=== PATIENT | female | born 1960 | race Caucasian/White ===

== ENCOUNTER 2020-07-26 16:14 | Emergency (ER) | payer OTHER, SELFPAY ==
[2020-07-26 16:36] VITALS: PULSE 78; RESP 20; TEMP 36.5; O2SAT 96; BMI 28.3
--- NOTE | 2020-07-26 17:01 | ED.EYEPROB ---
HPI - Eye Problem General Chief complaint: Eye Problems Stated complaint: foreign object in eye Time Seen by Provider: 07/26/20 16:43 Source: patient Mode of arrival: ambulatory Limitations: no limitations History of Present Illness HPI Narrative: 59 y/o female presents with right eye pain after she got her contact lens stuck in her eye this afternoon. She states when she put them in at 4pm today she had instant pain and was unable to get it out. She tried multiple times but was unable to. She has pain with blinking. She has increased watering of the eye. No noted changes in vision. MD chief complaint: eye pain Related Data Home Medications Medication Instructions Recorded Confirmed budesonide-formoterol 2 puff PO BID 07/26/20 07/26/20 bupropion HCl 1 tab PO QAM 07/26/20 07/26/20 candesartan 1 tab PO DAILY 07/26/20 07/26/20 duloxetine 1 cap PO QAM 07/26/20 07/26/20 estradiol 2 g VAGINAL 3XW 07/26/20 07/26/20 eszopiclone 1 tab PO BEDTIME 07/26/20 07/26/20 ibuprofen 1 tab PO Q8H PRN 07/26/20 07/26/20 levalbuterol tartrate 1 puff PO Q4H PRN 07/26/20 07/26/20 Allergies Allergy/AdvReac Type Severity Reaction Status Date / Time losartan Allergy Unknown Unknown Verified 07/26/20 17:08 metformin [METFORMIN] Allergy Unknown UNKNOWN, Verified 07/26/20 17:08 stomach pain pravastatin Allergy Unknown joint pain Verified 07/26/20 17:08 Review of Systems Review of Systems: Constitutional: No Fever, No Chills ENT/Mouth: No sore throat, No Rhinorrhea, No Swallowing Difficulty Eyes: + Eye Pain, No Swelling, + Redness Neuro: + Headache Heme/Lymph: No Bruising PMFSH Past Medical History Medical History Arthralgia Asthma Diabetes mellitus, type 2 Hypercholesteremia Hypertension Social History Social History Advance Directives: No Advance Directives Information Provided: No Physical Exam Vital Signs: Vital Signs: Last Vital Signs Temp 97.7 F 07/26/20 16:36 Pulse 78 07/26/20 16:36 Resp 20 07/26/20 16:36 Pulse Ox 96 07/26/20 16:36 Body Mass Index 28.3 Appearance: Alert. Oriented X3. Sitting on stretcher with hand over right eye. HEENT: right eye injected conjunctiva, fluorescene exam did not reveal any uptake, PERRLA, EOMI, lid is normal. normal left eye examination. CVS: Normal heart rate and rhythm. Pulses normal. Respiratory: No respiratory distress. Skin: Skin warm and dry. Normal skin color. Normal skin turgor. No rashes. Extremities: no lower extremity edema. Neuro: Oriented X 3. Non-focal. Course Course Course Narrative: 59 yo female presenting with contact lense stuck in her eye. Able to be removed successfully, intact. No corneal abrasion on fluroscene examination. Stable for discharge. Patient counseled. Procedures FB Removal Eye Time Out performed: No Location: eye (R) Topical anesthetic used: tetracaine Foreign body: other (contact lens) Evidence of corneal penetration: No Technique: irrigation and other Procedure performed under: direct visualization with magnification Post-procedure medication: topical anesthetic Patient tolerated procedure: well MDM - Eye Problem Differential Diagnosis Differential diagnosis: Likely corneal abrasion, conjunctivitis and corneal ulcer Critical Care Time Critical Care Time Critical Care Time: No Discharge Plan Discharge Clinical Impression: Foreign body in eye Qualifiers: Encounter type: initial encounter Laterality: right Qualified Code(s): T15.91XA - Foreign body on external eye, part unspecified, right eye, initial encounter Patient Disposition: Home, Self-Care Instructions: Eye Pain (ED) Additional Instructions: Your contact lens was successfully removed in the Emergency Department today. Exam did now show any evidence of corneal abrasion or scratches on your eye's surface. Do not use contact lenses for the next 72 hours. Wear your glasses instead. Use artificial tears as needed for dry eyes. If you develop recurrence of pain, redness, or develop blurred vision, discharge or signs of infection call your doctor or come back to the ER for further evalution. Prescriptions: No Action bupropion HCl 150 mg tablet sustained-release 12 hr 1 tab PO QAM RF: 0 ibuprofen 800 mg tablet 1 tab PO Q8H PRN (Reason: pain) RF: 0 candesartan 16 mg tablet 1 tab PO DAILY RF: 0 estradiol 0.01 % (0.1 mg/gram) cream 2 g vaginal 3XW RF: 0 duloxetine 60 mg capsule,delayed release(DR/EC) 1 cap PO QAM RF: 0 eszopiclone 1 mg tablet 1 tab PO BEDTIME RF: 0 levalbuterol tartrate 45 mcg/actuation HFA aerosol inhaler 1 puff PO Q4H PRN (Reason: Shortness Of Breath) RF: 0 budesonide-formoterol 80-4.5 mcg/actuation HFA aerosol inhaler 2 puff PO BID RF: 0
[2020-07-26] MEDS: Fluorescein Sodium STRIP 1 STRIP EYE-RIGHT (17:26)
== END 2020-07-26 17:32 | disposition home or self-care (01) ==
PROVIDERS: Emergency Provider Emergency Medicine; PCP Internal Medicine
DX: T15.01XA Foreign body in cornea, right eye, initial encounter (principal); H57.11 Ocular pain, right eye; I10 Essential (primary) hypertension; E11.9 Type 2 diabetes mellitus without complications; Y28.9XXA Contact with unspecified sharp object, undetermined intent, initial encounter; Y93.9 Activity, unspecified; Y92.9 Unspecified place or not applicable; Y99.9 Unspecified external cause status; Z79.899 Other long term (current) drug therapy
CPT/HCPCS: 65220; 99283

== ENCOUNTER → 2020-10-14 17:35 | Emergency (ER) | payer OTHER, SELFPAY | END | disposition left against medical advice (07) | PROVIDERS: Emergency Provider Emergency Medicine; PCP Internal Medicine | DX: R10.9 Unspecified abdominal pain (principal) ==

== ENCOUNTER 2021-02-24 09:04 | Outpatient (REF) | payer OTHER, SELFPAY ==
[2021-02-24 12:25] LABS: Alanine Aminotransferase 19 U/L (0-31); Albumin Level 4.2 g/dL (3.5-5.0); Alkaline Phosphatase 74 U/L (39-117); Anion Gap 12 (12-20); Aspartate Amino Transferase 16 U/L (5-31); Bilirubin Total 0.2 mg/dL (0.0-1.0); Blood Urea Nitrogen 17 mg/dL (9-16); Calcium 9.4 mg/dL (8.4-10.2); Carbon Dioxide 26 mmol/L (22-29); Chloride 105 mmol/L (96-108); Cholesterol 207 mg/dL; Estimated Glomerular Filt Rate > 60; Glucose Fasting 136 mg/dL (60-99); HDL Cholesterol 48 mg/dL; LDL Cholesterol Calculated 115 mg/dl; Potassium 4.2 mmol/L (3.3-5.1); Sodium 139 mmol/L (135-145); Total Protein 7.2 g/dL (6.5-8.0); Triglycerides 224 mg/dL
[2021-02-24 13:04] LABS: Estimated Average Glucose 140 mg/dL; Hemoglobin A1c % 6.5 %
[2021-02-24 13:14] LABS: Creatinine Urine 243.06 mg/dL; Microalbum/Creatinine Ratio Ur 7.4 ug/mg cr
== END 2021-02-24 09:05 | disposition home or self-care (01) ==
LOC: HO.HMGCLDS 09:04
PROVIDERS: PCP Internal Medicine; Visit Provider Internal Medicine
DX: E11.9 Type 2 diabetes mellitus without complications (principal); E78.00 Pure hypercholesterolemia, unspecified; I10 Essential (primary) hypertension
CPT/HCPCS: 36415; 80053; 80061; 82043; 83036

== ENCOUNTER 2021-07-20 10:55 | Outpatient (REF) | payer OTHER, SELFPAY ==
[2021-07-20 14:17] LABS: Estimated Average Glucose 180 mg/dL; Hemoglobin A1c % 7.9 %
[2021-07-21 04:20] LABS: HBS Num1 0.49 mIU/mL (0-7.99); ~Hepatitis B Surface Antibody NONREACTIVE (Nonreactive)
[2021-07-22 09:27] LABS: Rubeola IgG (Measles) >300.00 AU/mL
[2021-07-22 22:06] LABS: TS Negative Control Passed; TS Panel A 0; TS Panel B 0; TS Positive Control Passed; TSpotTB Negative (Negative)
== END 2021-07-20 10:56 | disposition home or self-care (01) ==
LOC: HO.HMGCLDS 10:55
PROVIDERS: Visit Provider Internal Medicine
DX: Z02.1 Encounter for pre-employment examination (principal); E11.9 Type 2 diabetes mellitus without complications
CPT/HCPCS: 36415; 83036; 86481; 86706; 86735; 86762; 86765; 86787

== ENCOUNTER 2021-07-21 11:29 | Outpatient (REF) | payer OTHER, SELFPAY ==
[2021-07-21 14:45] LABS: Alanine Aminotransferase 27 U/L (0-31); Albumin Level 4.2 g/dL (3.5-5.0); Alkaline Phosphatase 70 U/L (39-117); Anion Gap 12 (12-20); Aspartate Amino Transferase 20 U/L (5-31); Bilirubin Total 0.3 mg/dL (0.0-1.0); Blood Urea Nitrogen 15 mg/dL (9-16); Calcium 9.2 mg/dL (8.4-10.2); Carbon Dioxide 28 mmol/L (22-29); Chloride 101 mmol/L (96-108); Estimated Glomerular Filt Rate > 60; Glucose Fasting 169 mg/dL (60-99); Sodium 137 mmol/L (135-145); Total Protein 7.4 g/dL (6.5-8.0)
== END 2021-07-21 11:30 | disposition home or self-care (01) ==
LOC: HO.HMGCLDS 11:29
PROVIDERS: Visit Provider Internal Medicine
DX: E11.9 Type 2 diabetes mellitus without complications (principal)
CPT/HCPCS: 36415; 80053

== ENCOUNTER → 2021-09-01 14:24 | Outpatient (BNVA) | payer OTHER, SELFPAY | PROVIDERS: PCP Internal Medicine; Visit Provider Advanced Practice Midwife ==

== ENCOUNTER 2021-09-23 13:39 | Outpatient (REF) | payer OTHER, SELFPAY ==
[2021-09-23 15:58] LABS: Hematocrit 40.1 % (37.0-47.0); Hemoglobin 13.1 g/dl (12.0-16.0); Mean Corpuscular HGB Conc 32.7 g/dl (31.0-35.0); Mean Corpuscular Hemoglobin 30.3 pg (27.0-33.0); Mean Corpuscular Volume 92.8 fL (80.0-98.0); Mean Platelet Volume 10.5 fL (9.4-12.3); Platelet Count 288 X10*3/uL (160-400); Red Blood Count 4.32 X10*6/uL (4.20-5.50); Red Cell Distribution Width 12.4 % (11.0-16.0); White Blood Count 5.6 X10*3/uL (4.8-10.8)
[2021-09-23 16:10] LABS: Estimated Average Glucose 194 mg/dL; Hemoglobin A1c % 8.4 %
[2021-09-23 16:14] LABS: Alanine Aminotransferase 28 U/L (0-31); Albumin Level 4.1 g/dL (3.5-5.0); Alkaline Phosphatase 74 U/L (39-117); Anion Gap 10 (12-20); Aspartate Amino Transferase 19 U/L (5-31); Bilirubin Total 0.4 mg/dL (0.0-1.0); Blood Urea Nitrogen 20 mg/dL (9-16); Calcium 9.6 mg/dL (8.4-10.2); Carbon Dioxide 28 mmol/L (22-29); Chloride 102 mmol/L (96-108); Cholesterol 225 mg/dL; Estimated Glomerular Filt Rate > 60; Glucose Fasting 184 mg/dL (60-99); HDL Cholesterol 42 mg/dL; Iron 127 mcg/dL (30-160); LDL Cholesterol Calculated 131 mg/dl; Percent Iron Saturation 38 % (15-50); Potassium 4.5 mmol/L (3.3-5.1); Sodium 135 mmol/L (135-145); Total Iron Binding Capacity 330 mcg/dL (228-428); Total Protein 7.4 g/dL (6.5-8.0); Triglycerides 262 mg/dL; Unsaturated Iron Binding 203 ug/dL
[2021-09-23 16:23] LABS: Creatinine Urine 238.51 mg/dL; Microalbum/Creatinine Ratio Ur 10.4 ug/mg cr
[2021-09-23 16:37] LABS: TSH reflex Free T4 0.93 uIU/mL (0.32-4.0)
[2021-09-30 16:36] LABS: Cortisol, Free 0.47 mcg/dL
== END 2021-09-23 13:40 | disposition home or self-care (01) ==
LOC: HO.HMGCLDS 13:39
PROVIDERS: Visit Provider Internal Medicine
DX: E11.9 Type 2 diabetes mellitus without complications (principal); I10 Essential (primary) hypertension; E78.00 Pure hypercholesterolemia, unspecified; R53.83 Other fatigue
CPT/HCPCS: 36415; 80053; 80061; 82043; 82530; 83036; 83540; 84443; 85027

== ENCOUNTER → 2021-11-08 22:07 | Outpatient (REF) | payer OTHER, SELFPAY | LOC: HO.SL 22:07 | PROVIDERS: Visit Provider Internal Medicine | DX: G47.30 Sleep apnea, unspecified (principal) | CPT/HCPCS: 95806 ==

== ENCOUNTER 2021-12-29 14:15 | Emergency (ER) | payer OTHER, SELFPAY ==
--- NOTE | ~2021-12-29 | XR_ITS ---
EXAMINATION: XR CHEST CLINICAL INFORMATION: Cough COMPARISON: April 23, 2020 TECHNIQUE: PA view of the chest was obtained. FINDINGS: No significant abnormality is noted involving the heart, lungs, mediastinum, bony thorax or soft tissues. XR/XR chest 1V IMPRESSION: No acute disease.
[2021-12-29 14:27] VITALS: BP 161/95; PULSE 106; RESP 16; TEMP 37.1; O2SAT 96; BMI 31.1
[2021-12-29 14:57] LABS: Influenza A Negative (Negative); Influenza B2 Negative (Negative)
[2021-12-29 15:18] LABS: COVID-19 Test Positive (Negative)
[2021-12-29] MEDS: Albuterol/Iprat 2.5/0.5MG 3 ML AMPUL.NEB INHALE (15:29)
[2021-12-29 15:30] VITALS: PULSE 106; RESP 20; O2SAT 95
--- NOTE | 2021-12-29 15:59 | ED.URI ---
HPI - URI/Sore Throat General Chief Complaint: Upper Respiratory Symptoms Stated Complaint: sinus infection Time Seen by Provider: 12/29/21 14:49 Source: patient Mode of arrival: ambulatory History of Present Illness HPI Narrative: 61-year-old female with a past medical history of asthma, depression, diabetes, sleep apnea, hyperlipidemia, presenting to the ED complaining of sinus pressure/pain, productive cough, wheezing, chest discomfort when coughing, myalgias and right ear pain since yesterday. Reports subjective fever and chills. Denies SOB, pedal edema, recent travel, sick contacts. States does not have inhaler at home MD elicited complaint: cough, rhinorrhea and nasal congestion Onset (ago): day(s) Related Data Home Medications Medication Instructions Recorded Confirmed duloxetine 60 mg capsule,delayed 1 cap PO QAM 07/26/20 09/23/21 release ibuprofen 800 mg tablet 1 tab PO Q8H PRN 07/26/20 09/23/21 levalbuterol tartrate 45 1 puff PO Q4H PRN 07/26/20 09/23/21 mcg/actuation aerosol inhaler prazosin 1 mg capsule 1 mg PO BEDTIME 08/17/20 09/23/21 bupropion HCl 300 mg 24 hr tablet, 300 mg PO DAILY 02/01/21 09/23/21 extended release Previous Rx's Medication Instructions Recorded nystatin 100,000 unit/mL oral 5 ml PO Q6H #200 ml 04/07/21 suspension flash glucose scanning reader #1 ea 07/28/21 (FreeStyle Cici 2 [place]) flash glucose sensor (FreeStyle #2 ea 07/28/21 Cici 14 Day Sensor) budesonide-formoterol HFA 160 2 puff INHALATION BID #10.2 g 08/12/21 mcg-4.5 mcg/actuation aerosol inhaler (Symbicort) empagliflozin 10 mg tablet 10 mg PO DAILY #30 tab 10/06/21 (Jardiance) rosuvastatin 5 mg tablet (Crestor) 5 mg PO DAILY #90 tab 11/22/21 blood sugar diagnostic (FreeStyle #200 ea 11/24/21 Lite Strips) blood-glucose meter (FreeStyle #1 ea 11/24/21 Glentana Lite) lancets 28 gauge (FreeStyle #200 ea 11/24/21 Lancets) eszopiclone 1 mg tablet 1 mg PO BEDTIME #30 tab 12/03/21 albuterol sulfate 90 mcg/actuation 2 puff INHALATION Q4-6H PRN #6.7 g 12/29/21 aerosol inhaler azithromycin 250 mg tablet See Rx Instructions .ROUTE 12/29/21 .COMPLEX #6 tab benzonatate 200 mg capsule 200 mg PO TID PRN #20 cap 12/29/21 fluticasone propionate 50 2 spray INTRANASAL DAILY #16 g 12/29/21 mcg/actuation nasal spray,suspension (Flonase Allergy Relief) Allergies Allergy/AdvReac Type Severity Reaction Status Date / Time linagliptin [From Tradjenta] Allergy Unknown pancreatiti Verified 09/23/21 12:45 s losartan Allergy Unknown Unknown Verified 09/23/21 12:45 metformin [METFORMIN] Allergy Unknown UNKNOWN, Verified 09/23/21 12:45 stomach pain pravastatin Allergy Unknown joint pain Verified 09/23/21 12:45 Review of Systems Review of Systems: Constitutional: +subj Fever, + Chills ENT/Mouth: No Ear Pain, + Nasal Congestion, No Sinus Pain, No Hoarseness, No sore throat, + Rhinorrhea, No Swallowing Difficulty Cardiovascular: + Chest discomfort when coughing, No SOB Respiratory: + Cough, + Sputum, + Wheezing Gastrointestinal: No Nausea, No Vomiting, No Diarrhea, No Constipation, No Abdominal pain Genitourinary: No Dysuria, No Urinary Frequency, No Urgency, No Flank Pain Musculoskeletal: No joint pain, + Myalgias, No Joint Swelling Skin: No Skin Lesions, No rash Neuro: No Weakness, No Numbness, No Paresthesias Yes all other systems are reviewed and are negative [facility] Past Medical History Attestation statement: The following information was validated with the patient. Medical History Arthralgia Asthma Depression Diabetes mellitus, type 2 Fatigue Hypercholesteremia Menopause Pre-employment examination Sleep apnea Surgical History History of carpal tunnel surgery History of surgery Hx of bilateral breast reduction surgery Hx of section Hx of cholecystectomy Family History Family History Father Diabetes mellitus Mother Diabetes mellitus Social History Social History Housing: House Alcohol intake: never Patient Tobacco Use Status: Never used Tobacco e-Cigarette/Vaping Use: Never Used Advance Directives: No Advance Directives Information Provided: No Current occupational status: employed Physical Exam Vital Signs: Vital Signs: Last Vital Signs Temp 99.8 F 12/29/21 16:47 Pulse 96 12/29/21 16:47 Resp 16 12/29/21 16:47 BP 156/84 H 12/29/21 16:47 Pulse Ox 97 12/29/21 16:47 BMI result Body Mass Index 31.1 Const: General: cooperative, healthy appearing and no acute distress Orientation/consciousness: patient oriented x3 Limitations: no limitations HEENT: Head: Yes normal to inspection and Yes atraumatic Ears: hearing grossly normal bilaterally, external ears normal, mastoids normal and TM abnormal bulging on the right and erythematous on the right General nose exam: Normal external nose present Face and sinus: Yes normal facial exam and Yes sinus tenderness (Maxillary and ethmoid) Mouth: Normal oral and palatal mucosa present Throat: Yes posterior oropharynx normal, Yes tonsils normal, Yes uvula midline, No peritonsillar mass, No uvula laterally displaced and No uvular edema Eyes: General: appearance normal, both eyes and all related structures EOM: EOMs intact bilaterally Neck: Neck: Yes normal visual inspection, Yes no meningeal signs, Yes trachea midline, Yes supple and No anterior neck swelling Resp: Effort & Inspection: normal respiratory effort and no respiratory distress Auscultation: clear to auscultation bilaterally, no rales, no rhonchi and no wheezes Cardio: Rate: regular rate Heart sounds: S1 normal heart sound present and S2 normal heart sound present Skin: Rashes: no rashes Wounds: no wounds Neuro: General: patient oriented x3, tone normal and no meningeal signs Gait exam (Neuro): Normal gait present Extrem: General: Yes normal to inspection, Yes no pedal edema and Yes no calf tenderness Course Course Course Narrative: -COVID-19 positive. Influenza negative XR chest 1V IMPRESSION: No acute disease. ? -tachycardia improved s/p Motrin >> results discussed with patient including worrisome signs and symptoms and strict return precautions as needed follow-up with [facility] referral made MDM - URI/Sore Throat MDM Narrative Medical decision making narrative: 61-year-old female with a past medical history of asthma, depression, diabetes, sleep apnea, hyperlipidemia, presenting to the ED complaining of sinus pressure/pain, productive cough, wheezing, chest discomfort when coughing, myalgias and right ear pain since yesterday. On exam mildly tachyardic, NAD, nontoxic appearing, lungs CTA, sinuses tender to palpation, right ear consistent with otitis. Concern for viral illness. Low concern for asthma exacerbation. Symptoms atypical for ACS or PE Plan: CXR, COVID-19 testing, influenza testing, DuoNeb per patient request Differential Diagnosis Differential diagnosis: Likely upper respiratory infection, sinusitis, viral infection, bronchitis, influenza and pharyngitis Medical Records Attestation: I reviewed the patient's medical records. Lab Data Attestation: I reviewed the patient's lab results. Labs: Lab Results 12/29/21 12/29/21 Range/Units 14:32 15:06 COVID-19 (VINAYAK) Positive A (Negative) COVID-19 Clin Com See Note Influenza Type A (MARISEL) Negative (Negative) Influenza Type B (MARISEL) Negative (Negative) Influenza A & B Note See Note Discharge Plan Discharge Clinical Impression: COVID-19, Sinusitis, Otitis media Patient Disposition: Home, Self-Care Instructions: COVID-19 (Coronavirus Disease 2019) (ED) Additional Instructions: You have COVID-19. It also appears you have an ear infection and symptoms of sinusitis. Zithromax as antibiotic we take as prescribed. Possible Perles for cough. Flonase is a nasal decongestion. Rest. Stay hydrated. Take Tylenol and Motrin as needed At this time you will be okay for discharge. Please self isolate for 10-14 days. Do not expose yourself to others. You may not go to work or school. Please continue to follow cold instructions and wash your hands frequently. You may take Tylenol / Motrin as directed on the bottle for pain or fever. If you have constant or persistent shortness of breath, fever unresolved with medications, chest pain, or your unable to eat or drink please return to the ED CDC Guidelines for home isolation: - Stay away from others - WEAR A MASK if you are sick AND STAY HOME - Cover your mouth and nose with a tissue when you cough or sneeze. Dispose of tissues in a lined trash can and wash your hands immediately with soap and water for at least 20 seconds. If soap and water are not available, clean hands with alcohol-based hand administrative intern that contains at least 60% alcohol. - Clean your hands often with soap and water for at least 20 seconds - Avoid touching your eyes, nose and mouth with unwashed hands - Do not share dishes, drinking glasses, cups, eating utensils, towels, or bedding with other people in your home. After using these items, wash them thoroughly with soap and water or put in the bracer. - Clean high-touch surfaces in your isolation area ( sick room and bathroom) every day; let a caregiver clean and disinfect high-touch surfaces in other areas of the home. Clean the area or item with soap and water or another detergent if it is dirty. Then, use a household disinfectant. - Limit contact with pets and animals: If you must care for a pet, wash your hands before and after interacting with them) Prescriptions: New azithromycin 250 mg tablet See Rx Instructions .ROUTE .COMPLEX Qty: 6 0RF Rx Instructions: take 500 mg today (day 1), then 250 mg for 4 days (days 2-5) benzonatate 200 mg capsule 200 mg PO TID PRN (Reason: cough) Qty: 20 0RF albuterol sulfate 90 mcg/actuation HFA aerosol inhaler 2 puff inhalation Q4-6H PRN (Reason: shortness of breath or wheezing) Qty: 6.7 0RF fluticasone propionate [Flonase Allergy Relief] 50 mcg/actuation spray,suspension 2 spray intranasal DAILY Qty: 16 0RF Rx Instructions: administer into each nostril No Action nystatin 100,000 unit/mL suspension 5 ml PO Q6H Qty: 200 0RF Rx Instructions: swish and swallow (DME) FreeStyle Cici 2 [place] Misc See Rx Instructions .Route Qty: 1 0RF Rx Instructions: As directed (DME) FreeStyle Cici 14 Day Sensor Kit See Rx Instructions .Route Qty: 2 3RF Rx Instructions: As directed budesonide-formoterol [Symbicort] 160-4.5 mcg/actuation HFA aerosol inhaler 2 puff inhalation BID Qty: 10.2 6RF Jardiance 10 mg tablet 10 mg PO DAILY Qty: 30 2RF rosuvastatin [Crestor] 5 mg tablet 5 mg PO DAILY Qty: 90 0RF Rx Instructions: need to schedule 1 month followup with PCP before more refills (DME) blood-glucose meter [FreeStyle Glentana Lite] Kit See Rx Instructions .Route Qty: 1 0RF Rx Instructions: test twice a day (DME) lancets [FreeStyle Lancets] 28 gauge misc See Rx Instructions .Route Qty: 200 3RF Rx Instructions: test blood sugar twice a day (DME) FreeStyle Lite Strips Strip See Rx Instructions .Route Qty: 200 3RF Rx Instructions: test blood sugar twice a day eszopiclone 1 mg tablet 1 mg PO BEDTIME Qty: 30 0RF ibuprofen 800 mg tablet 1 tab PO Q8H PRN (Reason: pain) 0RF duloxetine 60 mg capsule,delayed release(DR/EC) 1 cap PO QAM 0RF levalbuterol tartrate 45 mcg/actuation HFA aerosol inhaler 1 puff PO Q4H PRN (Reason: Shortness Of Breath) 0RF prazosin 1 mg capsule 1 mg PO BEDTIME 0RF bupropion HCl 300 mg tablet extended release 24 hr 300 mg PO DAILY 0RF Referrals: Tessie Culp MD [Primary Care Provider] - 10 days Interventions: ED Discharge Assessment Last Done: 12/29/21 16:54 Discharge Date/Time: 12/29/21 16:57
[2021-12-29] MEDS: Ibuprofen 400 MG TABLET PO (16:10)
[2021-12-29 16:47] VITALS: BP 156/84; PULSE 96; RESP 16; TEMP 37.7; O2SAT 97
== END 2021-12-29 16:57 | disposition home or self-care (01) ==
PROVIDERS: Physician Assistant; Emergency Provider Emergency Medicine; PCP Internal Medicine
DX: U07.1 COVID-19 (principal); H66.91 Otitis media, unspecified, right ear; E11.9 Type 2 diabetes mellitus without complications; J45.909 Unspecified asthma, uncomplicated
CPT/HCPCS: 71045; 87502; 87635; 94640; 99284

== ENCOUNTER 2022-08-25 09:21 | Outpatient (REF) | payer OTHER, SELFPAY ==
[2022-08-25 11:16] LABS: Hematocrit 43.6 % (37.0-47.0); Hemoglobin 14.2 g/dl (12.0-16.0); Mean Corpuscular HGB Conc 32.6 g/dl (31.0-35.0); Mean Corpuscular Hemoglobin 30.5 pg (27.0-33.0); Mean Corpuscular Volume 93.6 fL (80.0-98.0); Mean Platelet Volume 10.7 fL (9.4-12.3); Platelet Count 255 X10*3/uL (160-400); Red Blood Count 4.66 X10*6/uL (4.20-5.50); White Blood Count 6.7 X10*3/uL (4.8-10.8)
[2022-08-25 11:41] LABS: Alanine Aminotransferase 26 U/L (0-31); Albumin Level 4.3 g/dL (3.5-5.0); Alkaline Phosphatase 68 U/L (39-117); Anion Gap 11 (12-20); Aspartate Amino Transferase 19 U/L (5-31); Bilirubin Total 0.4 mg/dL (0.0-1.0); Blood Urea Nitrogen 11 mg/dL (9-16); Calcium 9.4 mg/dL (8.4-10.2); Carbon Dioxide 30 mmol/L (22-29); Chloride 104 mmol/L (96-108); Cholesterol 147 mg/dL; Estimated Glomerular Filt Rate > 60; Glucose Fasting 236 mg/dL (60-99); HDL Cholesterol 47 mg/dL; LDL Cholesterol Calculated 58 mg/dl; Sodium 141 mmol/L (135-145); Total Protein 7.3 g/dL (6.5-8.0); Triglycerides 211 mg/dL
[2022-08-25 11:52] LABS: Estimated Average Glucose 212 mg/dL
== END 2022-08-25 09:22 | disposition home or self-care (01) ==
LOC: HO.HMGCLDS 09:21
PROVIDERS: PCP Internal Medicine; Visit Provider Internal Medicine
DX: E11.9 Type 2 diabetes mellitus without complications (principal); E78.00 Pure hypercholesterolemia, unspecified
CPT/HCPCS: 36415; 80053; 80061; 83036; 85027

== ENCOUNTER 2022-08-26 15:25 | Emergency (ER) | payer OTHER, SELFPAY ==
--- NOTE | ~2022-08-26 | CT_ITS ---
EXAMINATION: CT ABDOMEN AND PELVIS WITHOUT CONTRAST CLINICAL INFORMATION: Left flank pain COMPARISON: CT abdomen and pelvis 04/23/2020 TECHNIQUE: Multidetector volumetric imaging was performed from the superior aspect of the liver through the pubic symphysis. Sagittal and coronal reformatted images were obtained on the technologist's workstation. This CT examination was performed using dose optimization techniques as appropriate, variously including the following: *Automated exposure control *Adjustment of mA and/or kV according to patient size (this includes techniques or standardized protocols for targeted exams where dose is matched to indication/reason for exam; i.e. extremities or head) *Use of iterative reconstruction technique DLP: 578 mGy-cm FINDINGS: LUNG BASES: The visualized lung bases are unremarkable. LIVER, GALLBLADDER, AND BILIARY TREE: The liver is normal in size, shape, and heterogeneous attenuation especially right hepatic lobe likely fatty infiltration. No intrahepatic biliary ductal dilatation is present. The gallbladder has been surgically removed. PANCREAS: Unremarkable. SPLEEN: Unremarkable. ADRENAL GLANDS: Unremarkable. KIDNEYS AND URETERS: The kidneys are normal in size, shape, and attenuation. There is a punctate 2 mm radiopaque calculi mid pole left kidney without caliectasis. No additional radiopaque calculi seen. There is no hydronephrosis. There is mild bilateral perinephric stranding. BLADDER: Unremarkable. GASTROINTESTINAL TRACT: Scattered stool and gas is seen throughout the colon without distention. The small bowel loops are normal caliber. Appendix is normal caliber. No free air or free fluid seen. ABDOMINAL WALL: No significant hernia is appreciated. LYMPH NODES: Normal. VASCULAR: Unremarkable. PELVIC VISCERA: There is a 1.2 x 1.3 cm hypodense lesion in the posterior body of uterus likely fibroid. Previously it measured 2 cm. No additional lesions seen. The ovaries are unremarkable. There is no free fluid in the pelvis. No abnormal pelvic lymph nodes. OSSEOUS STRUCTURES: There are degenerative disc changes with vacuum disc phenomena L5-S1 disc level and bilateral L4-L5 facet joint arthropathy. CT/CT abdomen pelvis wo IV con IMPRESSION: 1. Punctate 2 mm radiopaque calculi mid pole left kidney without caliectasis or hydronephrosis. 2. Mild constipation. Normal appendix. 3. Small hypodense regressing lesion in the posterior body of uterus likely fibroid. It is smaller from 04/23/2020 exam 4. Heterogeneous liver likely focal fatty infiltration most likely right hepatic lobe. It is new since 2020 exam. The gallbladder has been surgically removed, unchanged. Fleischner guidelines were followed.
--- NOTE | 2022-08-26 16:48 | ED.GENADULT ---
HPI - General Adult General Chief complaint: General Medical <Ruby Will CNP - Last Filed: 08/26/22 16:56> Stated complaint: Diabetic <Ruby Will CNP - Last Filed: 08/26/22 16:56> Time Seen by Provider: 08/26/22 22:21 <Ruby Will CNP - Last Filed: 08/26/22 16:56> Source: patient <Seb Khan MD - Last Filed: 08/27/22 00:00> Mode of arrival: ambulatory <Seb Khan MD - Last Filed: 08/27/22 00:00> Limitations: no limitations <Seb Khan MD - Last Filed: 08/27/22 00:00> History of Present Illness HPI narrative: 62-year-old female with past medical history of diabetes, hypertension, asthma, hyperlipidemia who presents to the emergency department with complaints of left flank pain. Onset of symptoms 1 week ago. Reports she is a diabetic, has not been checking her sugars over the past year or 2, this AM fasting glucose 622. Has not seen PCP in over 1 year. Denies dizziness, lightheadedness, confusion, abdominal pain, nausea, vomiting, constipation, diarrhea, dysuria, hematuria, numbness or tingling to extremities, weakness. She does endorse urinary frequency and increased thirst . On arrival patient's blood sugar was 158 lab workup done prior to my evaluation revealed serum acetone negative no acidosis normal anion gap patient pretty reliable and is taking Jardiance 10 mg daily but does not check her sugars drink plenty of fluids was seen in the clinic yesterday and lab workup was done which showed HB A1c of 9 and fasting glucose was 236 <Seb Khan MD - Last Filed: 08/27/22 00:00> Related Data Home medications: Home Medications Medication Instructions Recorded Confirmed duloxetine 60 mg capsule,delayed 1 cap PO QAM 07/26/20 09/23/21 release ibuprofen 800 mg tablet 1 tab PO Q8H PRN pain 07/26/20 09/23/21 levalbuterol tartrate 45 1 puff PO Q4H PRN Shortness Of 07/26/20 09/23/21 mcg/actuation aerosol inhaler Breath prazosin 1 mg capsule 1 mg PO BEDTIME 08/17/20 09/23/21 bupropion HCl 300 mg 24 hr tablet, 300 mg PO DAILY 02/01/21 09/23/21 extended release Previous Rx's Medication Instructions Recorded nystatin 100,000 unit/mL oral 5 ml PO Q6H #200 mL 04/07/21 suspension flash glucose scanning reader #1 ea 07/28/21 (FreeStyle Cici 2 [place]) flash glucose sensor (FreeStyle #2 ea 07/28/21 Cici 14 Day Sensor kit) blood sugar diagnostic (FreeStyle #200 ea 11/24/21 Lite Strips) blood-glucose meter (FreeStyle #1 ea 11/24/21 [place] Lite kit) lancets 28 gauge (FreeStyle #200 ea 11/24/21 Lancets) eszopiclone 1 mg tablet 1 mg PO BEDTIME #30 tabs 12/03/21 albuterol sulfate 90 mcg/actuation 2 puff inhalation Q4-6H PRN 12/29/21 aerosol inhaler shortness of breath or wheezing #6.7 grams azithromycin 250 mg tablet See Rx Instructions PO .COMPLEX #6 12/29/21 tabs benzonatate 200 mg capsule 200 mg PO TID PRN cough #20 caps 12/29/21 fluticasone propionate 50 2 spray intranasal DAILY #16 grams 12/29/21 mcg/actuation nasal spray,suspension (Flonase Allergy Relief) empagliflozin 10 mg tablet 10 mg PO DAILY #90 tabs 12/30/21 (Jardiance) budesonide-formoterol HFA 160 2 puff inhalation BID #10.2 grams 03/08/22 mcg-4.5 mcg/actuation aerosol inhaler (Symbicort) rosuvastatin 5 mg tablet (Crestor) 5 mg PO DAILY #90 tabs 03/08/22 azithromycin 250 mg tablet See Rx Instructions PO .COMPLEX #6 03/11/22 tabs qftgnmzccd-pqbphuhxeofyu-memvodzn 1 cap PO Q6H PRN headache #20 caps 08/26/22 50 mg-300 mg-40 mg capsule (Fioricet) sumatriptan 20 mg/actuation nasal 20 mg intranasal Q2H PRN migraine 08/26/22 spray (Imitrex) headache #6 ea tramadol 50 mg tablet 50 mg PO Q6H PRN pain #20 tabs 08/26/22 <Ruby Will CNP - Last Filed: 08/26/22 16:56> Allergies/adverse reactions: Allergies Allergy/AdvReac Type Severity Reaction Status Date / Time linagliptin [From Tradjenta] Allergy Unknown pancreatiti Unverified 08/26/22 16:55 s losartan Allergy Unknown Unknown Verified 03/09/22 11:03 metformin [METFORMIN] Allergy Unknown UNKNOWN, Verified 03/09/22 11:03 stomach pain pravastatin Allergy Unknown joint pain Verified 03/09/22 11:03 <Ruby Will CNP - Last Filed: 08/26/22 16:56> Review of Systems Review of Systems: Yes all other systems are reviewed and are negative <Seb Khan MD - Last Filed: 08/27/22 00:00> [facility] Past Medical History Medical History: Medical History Arthralgia Asthma Depression Diabetes mellitus, type 2 Fatigue Hypercholesteremia Menopause Pre-employment examination Sleep apnea <Ruby Will CNP - Last Filed: 08/26/22 16:56> Surgical History: Surgical History History of carpal tunnel surgery History of surgery Hx of bilateral breast reduction surgery Hx of section Hx of cholecystectomy <Ruby Will CNP - Last Filed: 08/26/22 16:56> Family History Family History: Family History Father Diabetes mellitus Mother Diabetes mellitus <Ruby Will CNP - Last Filed: 08/26/22 16:56> Social History Social History: Social History Housing: House Alcohol intake: never Patient Tobacco Use Status: Never used Tobacco Smoked in Last 30 Days: No e-Cigarette/Vaping Use: Never Used Use of substances other than those prescribed or required for medical reasons: No Advance Directives: No Advance Directives Information Provided: No Patient : No Current occupational status: employed <Ruby Will CNP - Last Filed: 08/26/22 16:56> Physical Exam ED Vital Signs: Vital Signs - 24 hr 08/26/22 16:49 08/26/22 23:13 Temperature 97.8 F 98.1 F Pulse Rate 95 83 Respiratory Rate 18 16 Blood Pressure 155/101 H 159/96 H Pulse Oximetry 96 98 Oxygen Delivery Method Room Air Room Air BMI result Body Mass Index 30.3 <Ruby WillSARAH - Last Filed: 08/26/22 16:56> Vital Signs - 24 hr 08/26/22 16:49 08/26/22 23:13 Temperature 97.8 F 98.1 F Pulse Rate 95 83 Respiratory Rate 18 16 Blood Pressure 155/101 H 159/96 H Pulse Oximetry 96 98 Oxygen Delivery Method Room Air Room Air BMI result Body Mass Index 30.3 <Seb Khan MD - Last Filed: 08/27/22 00:00> Appearance: Alert. Oriented X3. No acute distress. Eyes: PERRLA, No Nystagmus light sensitivity ENT: Pharynx normal. Oral Mucosa moist no temporal artery tenderness Neck: Normal inspection. Neck supple. CVS: Normal heart rate and rhythm. Pulses normal. Respiratory: No respiratory distress. Equal air entry bilateral, no wheezing/rales/rhonchi Abdomen: Soft and nontender. Bowel sounds are present, no mass palpable, no CVA tenderness left lower back tenderness no spinal tenderness Skin: Skin warm and dry. Normal skin color. Normal skin turgor. Extremities: No lower extremity edema. No calf tenderness SLR negative b/l Neuro: Oriented X 3. No motor deficit. No sensory deficit.No cerebellar signs , cranial nerves II-XII intact <Seb Khan MD - Last Filed: 08/27/22 00:00> Course Course Course Narrative: This is an RME: Additional HPI, ROS, PE not included below will be deferred to primary provider. Patient is a 62-year-old female with past medical history of diabetes, hypertension, asthma, hyperlipidemia who presents to the emergency department with complaints of left flank pain. Onset of symptoms 1 week ago. Reports she is a diabetic, has not been checking her sugars over the past year or 2, this AM fasting glucose 622. Has not seen PCP in over 1 year. Denies dizziness, lightheadedness, confusion, abdominal pain, nausea, vomiting, constipation, diarrhea, dysuria, hematuria, numbness or tingling to extremities, weakness. She does endorse urinary frequency and increased thirst. PE: L CVA tenderness Plan: labs, urine, POC glucose, CT abd/ pelvis <Ruby Will CNP - Last Filed: 08/26/22 16:56> Medications Administered Discontinued Medications Generic Name Dose Route Start Last Admin Trade Name Freq PRN Reason Stop Dose Admin Sumatriptan Succinate 6 mg 08/26/22 22:34 08/26/22 23:23 Sumatriptan Succinate 6 Mg/0.5 Ml Vial SUBCUT 08/26/22 22:35 6 mg ONCE ONE Administration Tramadol HCl 50 mg 08/26/22 22:50 08/26/22 23:22 Tramadol Hcl 50 Mg Tablet PO 08/26/22 22:51 50 mg ONCE ONE Administration <Ruby Will CNP - Last Filed: 08/26/22 16:56> Medications Administered Discontinued Medications Generic Name Dose Route Start Last Admin Trade Name Freq PRN Reason Stop Dose Admin Sumatriptan Succinate 6 mg 08/26/22 22:34 08/26/22 23:23 Sumatriptan Succinate 6 Mg/0.5 Ml Vial SUBCUT 08/26/22 22:35 6 mg ONCE ONE Administration Tramadol HCl 50 mg 08/26/22 22:50 08/26/22 23:22 Tramadol Hcl 50 Mg Tablet PO 08/26/22 22:51 50 mg ONCE ONE Administration <Seb Khan MD - Last Filed: 08/27/22 00:00> Medical Decision Making Medical Decision Making [facility] Narrative: Patient POC 158 but had HbA1c of 9 lab drawn yesterday per patient takes her medication on regular basis but does not check her glucose. No signs of infection. Will advise patient to increase the dose of Jardiance to 20 mg daily in the a.m. and keep an eye on blood glucose and to drink plenty of fluids <Seb Khan MD - Last Filed: 08/27/22 00:00> Lab Data [facility] Lab Attestation statement: I reviewed the patient's lab results. <Seb Khan MD - Last Filed: 08/27/22 00:00> Result Diagrams: : 08/26/22 18:48 08/26/22 18:49 <Ruby Will, PRODUCT SCIENTIST - Last Filed: 08/26/22 16:56> Labs: Lab Results 08/26/22 08/26/22 08/26/22 Range/Units 17:00 18:48 18:48 WBC 7.7 (4.8-10.8) X10*3/uL RBC 4.79 (4.20-5.50) X10*6/uL Hgb 14.6 (12.0-16.0) g/dl Hct 44.5 (37.0-47.0) % MCV 92.9 (80.0-98.0) fL MCH 30.5 (27.0-33.0) pg MCHC 32.8 (31.0-35.0) g/dl RDW 12.9 (11.0-16.0) % Plt Count 302 (160-400) X10*3/uL MPV 10.2 (9.4-12.3) fL Immature Gran % (Auto) 0.3 (0.0-0.4) % Neut % (Auto) 57.3 (45-73) % Lymph % (Auto) 34.9 (20-40) % [place] % (Auto) 5.7 (2-11) % Eos % (Auto) 1.3 (0-4) % Baso % (Auto) 0.5 (0-2) % Lymph # (Auto) 2.7 (1.2-4.9) X10*3/uL [place] # (Auto) 0.4 (0.1-1.2) X10*3/uL Eos # (Auto) 0.1 (0.0-0.4) X10*3/uL Baso # (Auto) 0.0 (0.0-0.2) X10*3/uL Abs Immat Gran (auto) 0.02 (0.00-0.03) X10*3/uL Absolute Neuts (auto) 4.4 (2.0-8.3) x10*3/uL Absolute Nucleated RBC 0.000 (0.0-0.012) X10*3/uL Nucleated RBC % (auto) 0.0 (0.0-0.2) /100WBC Sodium (135-145) mmol/L Potassium (3.3-5.1) mmol/L Chloride (96-108) mmol/L Carbon Dioxide (22-29) mmol/L Anion Gap (12-20) BUN (9-16) mg/dL Creatinine (0.5-1.4) mg/dL Estim Creat Clear Calc Estimated GFR POC Glucose 158 H (60-115) mg/dL Random Glucose (60-115) mg/dL Estimat Average Glucose Hemoglobin A1c % Calcium (8.4-10.2) mg/dL Total Bilirubin (0.0-1.0) mg/dL AST (5-31) U/L ALT (0-31) U/L Alkaline Phosphatase (39-117) U/L Total Protein (6.5-8.0) g/dL Albumin (3.5-5.0) g/dL Urine Color Yellow Urine Appearance Clear Urine pH 5.0 (5.0-9.0) Ur Specific Ruffin >= 1.030 H (1.005-1.025) Urine Protein Negative (Neg-Trace) mg/dL Urine Glucose (UA) >=1000 H (Negative) mg/dL Urine Ketones Trace (Negative) mg/dL Urine Blood Trace H (Negative) Urine Nitrite Negative (Negative) Ur Leukocyte Esterase Negative (Negative) Urine RBC 0-2 (0-2) /HPF Urine WBC 0-5 (0-5) /HPF Ur Squamous Epith Cells 0-2 (0-2) /HPF Urine Bacteria None Seen (None Seen) Hyaline Casts 0-2 (0-2) /LPF Acetone, Qual (Negative) 08/26/22 08/26/22 08/26/22 Range/Units 18:48 18:49 23:12 WBC (4.8-10.8) X10*3/uL RBC (4.20-5.50) X10*6/uL Hgb (12.0-16.0) g/dl Hct (37.0-47.0) % MCV (80.0-98.0) fL MCH (27.0-33.0) pg MCHC (31.0-35.0) g/dl RDW (11.0-16.0) % Plt Count (160-400) X10*3/uL MPV (9.4-12.3) fL Immature Gran % (Auto) (0.0-0.4) % Neut % (Auto) (45-73) % Lymph % (Auto) (20-40) % [place] % (Auto) (2-11) % Eos % (Auto) (0-4) % Baso % (Auto) (0-2) % Lymph # (Auto) (1.2-4.9) X10*3/uL [place] # (Auto) (0.1-1.2) X10*3/uL Eos # (Auto) (0.0-0.4) X10*3/uL Baso # (Auto) (0.0-0.2) X10*3/uL Abs Immat Gran (auto) (0.00-0.03) X10*3/uL Absolute Neuts (auto) (2.0-8.3) x10*3/uL Absolute Nucleated RBC (0.0-0.012) X10*3/uL Nucleated RBC % (auto) (0.0-0.2) /100WBC Sodium 139 (135-145) mmol/L Potassium 4.2 (3.3-5.1) mmol/L Chloride 101 (96-108) mmol/L Carbon Dioxide 29 (22-29) mmol/L Anion Gap 13 (12-20) BUN 13 (9-16) mg/dL Creatinine 0.83 (0.5-1.4) mg/dL Estim Creat Clear Calc 64.9 Estimated GFR > 60 POC Glucose 142 H (60-115) mg/dL Random Glucose 168 H (60-115) mg/dL Estimat Average Glucose Cancelled Hemoglobin A1c % Cancelled Calcium 9.9 (8.4-10.2) mg/dL Total Bilirubin 0.5 (0.0-1.0) mg/dL AST 20 (5-31) U/L ALT 26 (0-31) U/L Alkaline Phosphatase 75 (39-117) U/L Total Protein 7.8 (6.5-8.0) g/dL Albumin 4.6 (3.5-5.0) g/dL Urine Color Urine Appearance Urine pH (5.0-9.0) Ur Specific Ruffin (1.005-1.025) Urine Protein (Neg-Trace) mg/dL Urine Glucose (UA) (Negative) mg/dL Urine Ketones (Negative) mg/dL Urine Blood (Negative) Urine Nitrite (Negative) Ur Leukocyte Esterase (Negative) Urine RBC (0-2) /HPF Urine WBC (0-5) /HPF Ur Squamous Epith Cells (0-2) /HPF Urine Bacteria (None Seen) Hyaline Casts (0-2) /LPF Acetone, Qual Negative (Negative) <Ruby Will, PRODUCT SCIENTIST - Last Filed: 08/26/22 16:56> Lab Results 08/26/22 08/26/22 08/26/22 Range/Units 17:00 18:48 18:48 WBC 7.7 (4.8-10.8) X10*3/uL RBC 4.79 (4.20-5.50) X10*6/uL Hgb 14.6 (12.0-16.0) g/dl Hct 44.5 (37.0-47.0) % MCV 92.9 (80.0-98.0) fL MCH 30.5 (27.0-33.0) pg MCHC 32.8 (31.0-35.0) g/dl RDW 12.9 (11.0-16.0) % Plt Count 302 (160-400) X10*3/uL MPV 10.2 (9.4-12.3) fL Immature Gran % (Auto) 0.3 (0.0-0.4) % Neut % (Auto) 57.3 (45-73) % Lymph % (Auto) 34.9 (20-40) % [place] % (Auto) 5.7 (2-11) % Eos % (Auto) 1.3 (0-4) % Baso % (Auto) 0.5 (0-2) % Lymph # (Auto) 2.7 (1.2-4.9) X10*3/uL [place] # (Auto) 0.4 (0.1-1.2) X10*3/uL Eos # (Auto) 0.1 (0.0-0.4) X10*3/uL Baso # (Auto) 0.0 (0.0-0.2) X10*3/uL Abs Immat Gran (auto) 0.02 (0.00-0.03) X10*3/uL Absolute Neuts (auto) 4.4 (2.0-8.3) x10*3/uL Absolute Nucleated RBC 0.000 (0.0-0.012) X10*3/uL Nucleated RBC % (auto) 0.0 (0.0-0.2) /100WBC Sodium (135-145) mmol/L Potassium (3.3-5.1) mmol/L Chloride (96-108) mmol/L Carbon Dioxide (22-29) mmol/L Anion Gap (12-20) BUN (9-16) mg/dL Creatinine (0.5-1.4) mg/dL Estim Creat Clear Calc Estimated GFR POC Glucose 158 H (60-115) mg/dL Random Glucose (60-115) mg/dL Estimat Average Glucose Hemoglobin A1c % Calcium (8.4-10.2) mg/dL Total Bilirubin (0.0-1.0) mg/dL AST (5-31) U/L ALT (0-31) U/L Alkaline Phosphatase (39-117) U/L Total Protein (6.5-8.0) g/dL Albumin (3.5-5.0) g/dL Urine Color Yellow Urine Appearance Clear Urine pH 5.0 (5.0-9.0) Ur Specific [place] >= 1.030 H (1.005-1.025) Urine Protein Negative (Neg-Trace) mg/dL Urine Glucose (UA) >=1000 H (Negative) mg/dL Urine Ketones Trace (Negative) mg/dL Urine Blood Trace H (Negative) Urine Nitrite Negative (Negative) Ur Leukocyte Esterase Negative (Negative) Urine RBC 0-2 (0-2) /HPF Urine WBC 0-5 (0-5) /HPF Ur Squamous Epith Cells 0-2 (0-2) /HPF Urine Bacteria None Seen (None Seen) Hyaline Casts 0-2 (0-2) /LPF Acetone, Qual (Negative) 08/26/22 08/26/22 08/26/22 Range/Units 18:48 18:49 23:12 WBC (4.8-10.8) X10*3/uL RBC (4.20-5.50) X10*6/uL Hgb (12.0-16.0) g/dl Hct (37.0-47.0) % MCV (80.0-98.0) fL MCH (27.0-33.0) pg MCHC (31.0-35.0) g/dl RDW (11.0-16.0) % Plt Count (160-400) X10*3/uL MPV (9.4-12.3) fL Immature Gran % (Auto) (0.0-0.4) % Neut % (Auto) (45-73) % Lymph % (Auto) (20-40) % [place] % (Auto) (2-11) % Eos % (Auto) (0-4) % Baso % (Auto) (0-2) % Lymph # (Auto) (1.2-4.9) X10*3/uL [place] # (Auto) (0.1-1.2) X10*3/uL Eos # (Auto) (0.0-0.4) X10*3/uL Baso # (Auto) (0.0-0.2) X10*3/uL Abs Immat Gran (auto) (0.00-0.03) X10*3/uL Absolute Neuts (auto) (2.0-8.3) x10*3/uL Absolute Nucleated RBC (0.0-0.012) X10*3/uL Nucleated RBC % (auto) (0.0-0.2) /100WBC Sodium 139 (135-145) mmol/L Potassium 4.2 (3.3-5.1) mmol/L Chloride 101 (96-108) mmol/L Carbon Dioxide 29 (22-29) mmol/L Anion Gap 13 (12-20) BUN 13 (9-16) mg/dL Creatinine 0.83 (0.5-1.4) mg/dL Estim Creat Clear Calc 64.9 Estimated GFR > 60 POC Glucose 142 H (60-115) mg/dL Random Glucose 168 H (60-115) mg/dL Estimat Average Glucose Cancelled Hemoglobin A1c % Cancelled Calcium 9.9 (8.4-10.2) mg/dL Total Bilirubin 0.5 (0.0-1.0) mg/dL AST 20 (5-31) U/L ALT 26 (0-31) U/L Alkaline Phosphatase 75 (39-117) U/L Total Protein 7.8 (6.5-8.0) g/dL Albumin 4.6 (3.5-5.0) g/dL Urine Color Urine Appearance Urine pH (5.0-9.0) Ur Specific Ruffin (1.005-1.025) Urine Protein (Neg-Trace) mg/dL Urine Glucose (UA) (Negative) mg/dL Urine Ketones (Negative) mg/dL Urine Blood (Negative) Urine Nitrite (Negative) Ur Leukocyte Esterase (Negative) Urine RBC (0-2) /HPF Urine WBC (0-5) /HPF Ur Squamous Epith Cells (0-2) /HPF Urine Bacteria (None Seen) Hyaline Casts (0-2) /LPF Acetone, Qual Negative (Negative) <Seb Khan MD - Last Filed: 08/27/22 00:00> Discharge Plan Discharge Clinical Impression: Diabetes mellitus, type 2, Headache, migraine <Ruby Will CNP - Last Filed: 08/26/22 16:56> Patient Disposition: Home, Self-Care <Ruby Will CNP - Last Filed: 08/26/22 16:56> Instructions: Migraine Headache (ED), Diabetic Hyperglycemia (ED) <Ruby Will CNP - Last Filed: 08/26/22 16:56> Additional Instructions: Increase the dose of Jardiance to 20 mg daily Drink plenty of fluids Check blood sugar daily should be less than 200 Imitrex for migraine Tramadol for back pain Follow-up with PCP <Ruby Will CNP - Last Filed: 08/26/22 16:56> Prescriptions: New sumatriptan [Imitrex] 20 mg/actuation spray,non-aerosol 20 mg intranasal Q2H PRN (Reason: migraine headache) Qty: 6 0RF Rx Instructions: administer into one nostril as a single dose; if 2nd dose needed,administer into other nostril after at least 2 hrs, NTE 2 doses (40 mg) per episode tramadol 50 mg tablet 50 mg PO Q6H PRN (Reason: pain) Qty: 20 0RF odkaxtkfip-xbnfjwhunhoow-rtiq [Fioricet] 50-300-40 mg capsule 1 cap PO Q6H PRN (Reason: headache) Qty: 20 0RF No Action nystatin 100,000 unit/mL suspension 5 ml PO Q6H Qty: 200 0RF Rx Instructions: swish and swallow (DME) FreeStyle Cici 2 [place] Misc See Rx Instructions .Route Qty: 1 0RF Rx Instructions: As directed (DME) FreeStyle Cici 14 Day Sensor Kit See Rx Instructions .Route Qty: 2 3RF Rx Instructions: As directed (DME) blood-glucose meter [FreeStyle [place] Lite] Kit See Rx Instructions .Route Qty: 1 0RF Rx Instructions: test twice a day (DME) lancets [FreeStyle Lancets] 28 gauge misc See Rx Instructions .Route Qty: 200 3RF Rx Instructions: test blood sugar twice a day (DME) FreeStyle Lite Strips Strip See Rx Instructions .Route Qty: 200 3RF Rx Instructions: test blood sugar twice a day eszopiclone 1 mg tablet 1 mg PO BEDTIME Qty: 30 0RF Jardiance 10 mg tablet 10 mg PO DAILY Qty: 90 3RF budesonide-formoterol [Symbicort] 160-4.5 mcg/actuation HFA aerosol inhaler 2 puff inhalation BID Qty: 10.2 6RF rosuvastatin [Crestor] 5 mg tablet 5 mg PO DAILY Qty: 90 3RF Rx Instructions: need to schedule 1 month followup with PCP before more refills azithromycin 250 mg tablet See Rx Instructions PO .COMPLEX Qty: 6 0RF Rx Instructions: take 500 mg today (day 1), then 250 mg for 4 days (days 2-5) PO ibuprofen 800 mg tablet 1 tab PO Q8H PRN (Reason: pain) duloxetine 60 mg capsule,delayed release(DR/EC) 1 cap PO QAM levalbuterol tartrate 45 mcg/actuation HFA aerosol inhaler 1 puff PO Q4H PRN (Reason: Shortness Of Breath) azithromycin 250 mg tablet See Rx Instructions .ROUTE .COMPLEX Qty: 6 0RF Rx Instructions: take 500 mg today (day 1), then 250 mg for 4 days (days 2-5) benzonatate 200 mg capsule 200 mg PO TID PRN (Reason: cough) Qty: 20 0RF albuterol sulfate 90 mcg/actuation HFA aerosol inhaler 2 puff inhalation Q4-6H PRN (Reason: shortness of breath or wheezing) Qty: 6.7 0RF fluticasone propionate [Flonase Allergy Relief] 50 mcg/actuation spray,suspension 2 spray intranasal DAILY Qty: 16 0RF Rx Instructions: administer into each nostril prazosin 1 mg capsule 1 mg PO BEDTIME bupropion HCl 300 mg tablet extended release 24 hr 300 mg PO DAILY <Ruby Will CNP - Last Filed: 08/26/22 16:56>
[2022-08-26 16:49] VITALS: BP 155/101; PULSE 95; RESP 18; TEMP 36.6; O2SAT 96; BMI 30.3
[2022-08-26 17:04] LABS: Glucose, Whole Blood 158 mg/dL (60-115)
[2022-08-26 19:05] LABS: MANUAL DIFF FLAG NO
[2022-08-26 19:09] LABS: Appearance Urine Clear; Color Urine Yellow; Glucose Urine UA >=1000 mg/dL (Negative); Leukocyte Esterase Urine Negative (Negative); Nitrite Urine Negative (Negative); Specific Gravity - Urine >= 1.030 (1.005-1.025); UMIC TRIGGER UACC YES; Urine Blood Trace (Negative); Urine Ketones Trace mg/dL (Negative); Urine Protein Negative (Neg-Trace)
[2022-08-26 19:14] LABS: Bacteria Urine None Seen (None Seen); Hyaline Casts Urine 0-2 /LPF (0-2); RBC Urine 0-2 /HPF (0-2); Squamous Epithelial Cell Urine 0-2 /HPF (0-2); WBC Urine 0-5 /HPF (0-5)
[2022-08-26 19:23] LABS: Alanine Aminotransferase 26 U/L (0-31); Albumin Level 4.6 g/dL (3.5-5.0); Alkaline Phosphatase 75 U/L (39-117); Anion Gap 13 (12-20); Aspartate Amino Transferase 20 U/L (5-31); Bilirubin Total 0.5 mg/dL (0.0-1.0); Blood Urea Nitrogen 13 mg/dL (9-16); Calcium 9.9 mg/dL (8.4-10.2); Carbon Dioxide 29 mmol/L (22-29); Chloride 101 mmol/L (96-108); Creatinine Clr Calc Pharmacy 64.9; Estimated Glomerular Filt Rate > 60; Glucose Random 168 mg/dL (60-115); Potassium 4.2 mmol/L (3.3-5.1); Sodium 139 mmol/L (135-145); Total Protein 7.8 g/dL (6.5-8.0)
[2022-08-26 19:23] LABS: Basophils Percent Auto 0.5 % (0-2); Eosinophils Absolute Auto 0.1 X10*3/uL (0.0-0.4); Eosinophils Percent Auto 1.3 % (0-4); Hematocrit 44.5 % (37.0-47.0); Hemoglobin 14.6 g/dl (12.0-16.0); Imm Gran Abs Auto 0.02 X10*3/uL (0.00-0.03); Imm Gran Pct Auto 0.3 % (0.0-0.4); Lymphocytes Absolute Auto 2.7 X10*3/uL (1.2-4.9); Lymphocytes Percent Auto 34.9 % (20-40); Mean Corpuscular HGB Conc 32.8 g/dl (31.0-35.0); Mean Corpuscular Hemoglobin 30.5 pg (27.0-33.0); Mean Corpuscular Volume 92.9 fL (80.0-98.0); Mean Platelet Volume 10.2 fL (9.4-12.3); Monocytes Absolute Auto 0.4 X10*3/uL (0.1-1.2); Monocytes Percent Auto 5.7 % (2-11); Neutrophils Absolute Auto 4.4 x10*3/uL (2.0-8.3); Neutrophils Percent Auto 57.3 % (45-73); Platelet Count 302 X10*3/uL (160-400); Red Blood Count 4.79 X10*6/uL (4.20-5.50); Red Cell Distribution Width 12.9 % (11.0-16.0); White Blood Count 7.7 X10*3/uL (4.8-10.8)
[2022-08-26 19:26] LABS: Acetone, serum QL Negative (Negative)
[2022-08-26 23:13] VITALS: BP 159/96; PULSE 83; RESP 16; TEMP 36.7; O2SAT 98
[2022-08-26 23:18] LABS: Glucose, Whole Blood 142 mg/dL (60-115)
[2022-08-26] MEDS: traMADoL HCL 50 MG TABLET PO (23:22)
[2022-08-26] MEDS: SUMAtriptan succinate 6 MG/0.5 ML VIAL SUBCUT (23:23)
== END 2022-08-27 00:25 | disposition home or self-care (01) ==
PROVIDERS: Nurse Practitioner Family; Emergency Provider Internal Medicine; PCP Internal Medicine
DX: G43.909 Migraine, unspecified, not intractable, without status migrainosus (principal); R10.9 Unspecified abdominal pain; E11.9 Type 2 diabetes mellitus without complications; I10 Essential (primary) hypertension; Z20.822 Contact with and (suspected) exposure to COVID-19; Z79.899 Other long term (current) drug therapy
CPT/HCPCS: 36415; 74176; 80053; 81001; 82009; 82947; 85025; 96372; 99284; J3030

== ENCOUNTER 2022-12-19 09:50 | Outpatient (REF) | payer OTHER, SELFPAY ==
[2022-12-19 11:52] LABS: Estimated Average Glucose 174 mg/dL; Hemoglobin A1c % 7.7 %
[2022-12-19 12:34] LABS: Alanine Aminotransferase 27 U/L (0-31); Alkaline Phosphatase 67 U/L (39-117); Anion Gap 10 (12-20); Aspartate Amino Transferase 16 U/L (5-31); Bilirubin Total 0.4 mg/dL (0.0-1.0); Blood Urea Nitrogen 14 mg/dL (9-16); Calcium 8.8 mg/dL (8.4-10.2); Carbon Dioxide 31 mmol/L (22-29); Chloride 104 mmol/L (96-108); Cholesterol 180 mg/dL; Estimated Glomerular Filt Rate > 60; Glucose Fasting 221 mg/dL (60-99); HDL Cholesterol 46 mg/dL; LDL Cholesterol Calculated 75 mg/dl; Potassium 3.8 mmol/L (3.3-5.1); Sodium 141 mmol/L (135-145); TSH reflex Free T4 3.82 uIU/mL (0.32-4.0); Total Protein 6.7 g/dL (6.5-8.0); Triglycerides 299 mg/dL
== END 2022-12-19 09:51 | disposition home or self-care (01) ==
LOC: HO.HMGCLDS 09:50
PROVIDERS: PCP Internal Medicine; Visit Provider Internal Medicine
DX: I10 Essential (primary) hypertension (principal); E78.00 Pure hypercholesterolemia, unspecified; E11.9 Type 2 diabetes mellitus without complications
CPT/HCPCS: 36415; 80053; 80061; 83036; 84443

== ENCOUNTER → 2022-12-20 10:05 | Outpatient (BNVA) | payer OTHER, SELFPAY | PROVIDERS: PCP Internal Medicine; Visit Provider Dietitian, Registered | DX: E11.9 Type 2 diabetes mellitus without complications (principal) | CPT/HCPCS: 97802 ==

== ENCOUNTER → 2023-02-02 09:34 | Outpatient (BNVA) | payer OTHER, SELFPAY | PROVIDERS: PCP Internal Medicine; Visit Provider Internal Medicine Endocrinology, Diabetes & Metabolism | DX: E11.9 Type 2 diabetes mellitus without complications (principal); Z79.84 Long term (current) use of oral hypoglycemic drugs | CPT/HCPCS: 82947; 99202 ==

== ENCOUNTER 2023-03-17 13:46 | Outpatient (AMB) | payer OTHER, SELFPAY ==
[2023-03-17 14:32] VITALS: BP 106/74; PULSE 84; O2SAT 96; BMI 28.2
--- NOTE | 2023-03-17 14:32 | MHC.PC.OV ---
Vital Signs 03/17/23 14:32 Height 5 ft 1 in Weight 149 lb BMI 28.2 BP 106/74 Blood Pressure Location Lt brachial Position Sitting Pulse 84 Pulse Source Pulse Oximeter Pulse Oximetry (%) 96 Oxygen Delivery Method Room Air Intake Visit Reasons: Annual PE Intake Note: Pt is here today for a PE. Allergies linagliptin [From Tradjenta] Allergy (Unknown, Verified 03/17/23 14:33) pancreatitis losartan Allergy (Unknown, Verified 03/17/23 14:33) Unknown metformin [METFORMIN] Allergy (Unknown, Verified 03/17/23 14:33) UNKNOWN, stomach pain pravastatin Allergy (Unknown, Verified 03/17/23 14:33) joint pain dulaglutide [From Trulicity] Adverse Reaction (Intermediate, Verified 03/17/23 14:33) fatigue Medication List - Last Reconciled 03/17/23 by Tessie Culp MD albuterol sulfate 90 mcg/actuation 2 puffs inhalation Q4-6H PRN blood-glucose sensor (FreeStyle Cici 3 Sensor device) As directed to test blood sugar 4 times per day blood-glucose sensor (FreeStyle Cici 3 Sensor device) As directed change every 14 days budesonide-formoterol 160-4.5 mcg/actuation (Symbicort) 2 puffs inhalation BID bupropion HCl 300 mg PO DAILY nioxdzojlw-ecktvxufcrnga-gnmd 50-300-40 mg (Fioricet) 1 cap PO Q6H PRN duloxetine 90 mg PO QAM empagliflozin (Jardiance) 25 mg PO DAILY eszopiclone 1 mg PO BEDTIME PRN fluticasone propionate 50 mcg/actuation (Flonase Allergy Relief) 2 sprays intranasal DAILY PRN ibuprofen 1 tab PO Q8H PRN levalbuterol tartrate 45 mcg/actuation 1 puff PO Q4H PRN nystatin 5 mL PO Q6H prazosin 3 mg PO BEDTIME rosuvastatin (Crestor) 5 mg PO DAILY sumatriptan 20 mg/actuation (Imitrex) 20 mg intranasal Q2H PRN tirzepatide (Mounjaro) 2.5 mg (0.5 mL) subcut QWEEK 4 weeks valsartan 80 mg PO DAILY Tobacco use date assessed: 03/17/23 Dental Screening Dental Screen Date: 03/17/23 Did you have a dental visit in the last 12 months?: Yes Did you have a dental problem in the last 6 months where you did not have access to dental care?: No Was dental information given to patient?: Patient has dentist HPI Annual PE HPI Details Pt presents for PE. Pt reports improved blood glucose readings between 80-130 since started Mounjaro and has been tolerating it well. [facility] Medical History Arthralgia Asthma Depression Diabetes mellitus, type 2 Fatigue Hypercholesteremia Menopause Pre-employment examination Sleep apnea Surgical History History of carpal tunnel surgery History of surgery History of tooth extraction Hx of bilateral breast reduction surgery Hx of section Hx of cholecystectomy Family History Father Diabetes mellitus Mother Diabetes mellitus Social History Housing: House Alcohol intake: never Patient Tobacco Use Status: Never used Tobacco e-Cigarette/Vaping Use: Never Used Current occupational status: employed Cognitive needs: No Hearing needs: No Vision needs: Yes Questionnaire Thrive Questionnaire Date Thrive assessed: 09/02/22 AUDIT C Alcohol Use Questionnaire (AUDIT-C) 1. How often do you have a drink containing alcohol?: Never 3. How often do you have six or more drinks on one occasion?: Never Total Score: 0 Score Reviewed/Action Taken: No KATERINA-7 AMB Questionnaire KATERINA-7 Date KATERINA - 7 assessed: 09/02/22 Source: Developed by Drs. Bladimir Smith, Malina Pittman, Reed Bradford and colleagues, with an educational oren from [employer]. Review of Systems Const All systems reviewed & are unremarkable except as noted in HPI and below Reports no additional complaints Eyes Reports no additional complaints ENT Reports no additional complaints Card Reports no additional complaints Resp Reports no additional complaints GI Reports no additional complaints Reports no additional complaints Physical exam (Primary Care) Vital Signs: Last Vital Signs Pulse 84 03/17/23 14:32 BP 106/74 03/17/23 14:32 Pulse Ox 96 03/17/23 14:32 Oxygen Delivery Method Room Air 03/17/23 14:32 BMI result Body Mass Index 28.2 Tobacco/Smoking Status: Tobacco use Status Tobacco use date assessed 03/17/23 03/17/23 14:36 Patient Tobacco Use Status Never used Tobacco 03/17/23 14:36 e-Cigarette/Vaping Use Never Used 03/17/23 14:36 Thrive Assessment: Date of Thrive Assessment Date Thrive assessed 09/02/22 03/17/23 14:36 Const General: no acute distress HENMT Head: Yes normal to inspection Ears: hearing grossly normal bilaterally General nose exam: Normal external nose present Mouth: Normal oral and palatal mucosa present Throat: Yes posterior oropharynx normal Eyes General: appearance normal, both eyes and all related structures Neck Neck: Yes no lymphadenopathy and Yes supple Resp Effort & Inspection: normal respiratory effort Auscultation: clear to auscultation bilaterally Cardio Rhythm: regular rhythm Heart sounds: S1 normal heart sound present and S2 normal heart sound present GI Inspection: Yes normal to inspection Palpation (GI): Soft to palpation Percussion: Yes normal to percussion Auscultation: normal bowel sounds Assessment and Plan Assessment & Plan (1) Diabetes mellitus, type 2: Comment: Intolerant to metformin Trulicity Code(s): E11.9 - Type 2 diabetes mellitus without complications Plan: ADA diet, exercise discussed, cont current meds, f/u with Dr. Leach in April (2) Hypertension: Code(s): I10 - Essential (primary) hypertension Plan: cont meds (3) Hypercholesteremia: Code(s): E78.00 - Pure hypercholesterolemia, unspecified Plan: cont statin (4) Annual physical exam: Code(s): Z00.00 - Encounter for general adult medical examination without abnormal findings Plan: pt will schedule mammogram and colonoscopy Orders: Orders MM screening mammo BI Today Z12.31 - Encounter for screening mammogram for malignant neoplasm of breast Comprehensive [place]. Panel Fast 6 Months E11.9 - Type 2 diabetes mellitus without complications, E78.00 - Pure hypercholesterolemia, unspecified, I10 - Essential (primary) hypertension Hemoglobin A1c 6 Months E11.9 - Type 2 diabetes mellitus without complications, E78.00 - Pure hypercholesterolemia, unspecified, I10 - Essential (primary) hypertension Lipid Panel 6 Months E11.9 - Type 2 diabetes mellitus without complications, E78.00 - Pure hypercholesterolemia, unspecified, I10 - Essential (primary) hypertension Coding Level of Care Code Est Pt Prev Care 40-64y(48818) Diagnoses Diabetes mellitus, type 2 E11.9 Hypertension I10 Hypercholesteremia E78.00 Annual physical exam Z00.00
== END 2023-03-17 15:12 | disposition home or self-care (01) ==
PROVIDERS: Visit Provider Internal Medicine
DX: E11.9 Type 2 diabetes mellitus without complications (principal); I10 Essential (primary) hypertension; E78.00 Pure hypercholesterolemia, unspecified; Z00.00 Encounter for general adult medical examination without abnormal findings
CPT/HCPCS: 99396

== ENCOUNTER 2023-05-26 12:45 | Outpatient (AMB) | payer OTHER, SELFPAY ==
[2023-05-26 14:13] VITALS: BP 120/64; PULSE 74; TEMP 36.6; O2SAT 97; BMI 26.8
--- NOTE | 2023-05-26 14:13 | AM.OFFWIN_ITS ---
Intake Vital Signs 05/26/23 14:13 Height 5 ft 1 in Weight 142 lb BMI 26.8 BP 120/64 Blood Pressure Location Lt brachial Position Sitting Pulse 74 Pulse Source Pulse Oximeter Temp 97.9 F Temp Source Temporal Artery Scan Pulse Oximetry (%) 97 Intake Visit Reasons: EP vein problems Intake Note: pt is here for c/o leg brusing and vein hurts to touch on legs Patient Tobacco Use Status: Never used Tobacco Allergies linagliptin [From Tradjenta] Allergy (Unknown, Verified 05/26/23 14:15) pancreatitis losartan Allergy (Unknown, Verified 05/26/23 14:15) Unknown metformin [METFORMIN] Allergy (Unknown, Verified 05/26/23 14:15) UNKNOWN, stomach pain pravastatin Allergy (Unknown, Verified 05/26/23 14:15) joint pain dulaglutide [From Trulicity] Adverse Reaction (Intermediate, Verified 05/26/23 14:15) fatigue Do you need a note to return to daycare/school/sports/work: Yes HPI HPI Comments History of Present Illness Details This is a 62-year-old female with a past medical history of diabetes, hyperlipidemia, obstructive sleep apnea, anxiety, depression and PTSD presenting for evaluation of bruising on the back of her left calf that she 1st noted 2 weeks ago. Patient denies any injury or trauma preceding the onset of her pain or bruising. Patient states that she noted a new bruise 2 days ago in the same region that is tender to touch. Again, the patient denies any injury or trauma. Patient has not taken any medication for treatment of her symptoms. Of note, patient denies taking any aspirin or blood thinning medications. [facility] [place] Medical History Fatigue Sleep apnea Pre-employment examination Depression Menopause Diabetes mellitus, type 2 Hypercholesteremia Asthma Arthralgia Surgical History History of carpal tunnel surgery History of surgery History of tooth extraction Hx of bilateral breast reduction surgery Hx of section Hx of cholecystectomy Family History Father Diabetes mellitus Mother Diabetes mellitus Social History Housing: House Alcohol intake: never Patient Tobacco Use Status: Never used Tobacco e-Cigarette/Vaping Use: Never Used Current occupational status: employed Cognitive needs: No Hearing needs: No Vision needs: Yes Review of Systems Const All systems reviewed & are unremarkable except as noted in HPI and below Skin/Breast Reports unusual bruising (left lower extremity) Physical Exam Vital Signs: Last Vital Signs Temp 97.9 F 05/26/23 14:13 Pulse 74 05/26/23 14:13 BP 120/64 05/26/23 14:13 Pulse Ox 97 05/26/23 14:13 BMI result Body Mass Index 26.8 Const General: cooperative, healthy appearing, comfortable and other Nutritional Appearance: average body habitus Orientation/consciousness: patient oriented x3 Limitations: no limitations Skin Lesions: other (two lesions of evolving ecchymosis left calf; both mildly tender to touch) Neuro General: patient oriented x3 Cognition (Neuro): normal cognition Extrem Left lower extremity: normal to inspection (no left calf tenderness, no erythema, no pitting edema of LLE); no edema Psych Appearance: grossly normal Mental Status: mental status grossly normal Affect: Anxious affect present Attitude: cooperative Insight: Good insight present (Psych) Judgement: Good judgement present (Psych) Assessment & Plan Assessment & Plan (1) Abnormal bruising: Comment: Patient adamantly denies any trauma to her left lower extremity; ecchymosis is not extensive. No imaging or laboratories are warranted at this time. Code(s): R23.3 - Spontaneous ecchymoses Plan: Follow-up with PCP within 2 weeks for any new lesions or worsening pain. Coding Level of Care Code New Pt Level 3 (55011) Diagnoses Abnormal bruising R23.3 Time Spent (min) 20
== END 2023-05-26 14:52 | disposition home or self-care (01) ==
PROVIDERS: PCP Internal Medicine; Visit Provider Physician Assistant
DX: R23.3 Spontaneous ecchymoses (principal)
CPT/HCPCS: 99203

== ENCOUNTER 2023-08-18 12:58 | Outpatient (AMB) | payer OTHER, SELFPAY ==
[2023-08-18 14:16] VITALS: BP 118/78; PULSE 78; TEMP 37.1; O2SAT 98; BMI 26.6
--- NOTE | 2023-08-18 14:16 | MHC.OFFWIV ---
Intake Vital Signs 08/18/23 14:16 Height 5 ft 1 in Weight 141 lb BMI 26.6 BP 118/78 Blood Pressure Location Lt brachial Position Sitting Pulse 78 Pulse Source Pulse Oximeter Temp 98.7 F Temp Source Oral Pulse Oximetry (%) 98 Oxygen Delivery Method Room Air Oxygen Flow Rate 98.7 Intake Visit Reasons: EST/ found a lump(lobby) Intake Note: pt is here today for found lump at the bottom of the base of her skull started about 6 months ago with a lot of headaches. Patient Tobacco Use Status: Never used Tobacco Allergies linagliptin [From Tradjenta] Allergy (Unknown, Verified 08/18/23 14:20) pancreatitis losartan Allergy (Unknown, Verified 08/18/23 14:20) Unknown metformin [METFORMIN] Allergy (Unknown, Verified 08/18/23 14:20) UNKNOWN, stomach pain pravastatin Allergy (Unknown, Verified 08/18/23 14:20) joint pain dulaglutide [From Trulicity] Adverse Reaction (Intermediate, Verified 08/18/23 14:20) fatigue Do you need a note to return to daycare/school/sports/work: No HPI EST/ found a lump(lobby) HPI Details This is a 63 year old female patient who presents today with a lump on the back right of her head. This has been present for around 6 months. No trauma. Patient reports it is very mildly tender to touch. Also reports constant ocular headaches. Denies any vision changes. No fever, chills, malaise. PFSH Medical History Fatigue Sleep apnea Pre-employment examination Depression Menopause Diabetes mellitus, type 2 Hypercholesteremia Asthma Arthralgia Surgical History History of tooth extraction History of carpal tunnel surgery Hx of bilateral breast reduction surgery Hx of section History of surgery Hx of cholecystectomy Family History Father Diabetes mellitus Mother Diabetes mellitus Social History Housing: House Alcohol intake: never Patient Tobacco Use Status: Never used Tobacco e-Cigarette/Vaping Use: Never Used Current occupational status: employed Cognitive needs: No Hearing needs: No Vision needs: Yes Review of Systems Const All systems reviewed & are unremarkable except as noted in HPI and below Physical Exam Vital Signs: Last Vital Signs Temp 98.7 F 08/18/23 14:16 Pulse 78 08/18/23 14:16 BP 118/78 08/18/23 14:16 Pulse Ox 98 08/18/23 14:16 Oxygen Delivery Method Room Air 08/18/23 14:16 Oxygen Flow Rate 98.7 08/18/23 14:16 BMI result Body Mass Index 26.6 Const General: cooperative, healthy appearing and no acute distress HEENT Head: Yes normal to inspection Ears: hearing grossly normal bilaterally, external ears normal and TM's normal bilaterally Eyes General: appearance normal, both eyes and all related structures Neck Neck: Yes no lymphadenopathy Skin Other: There is a firm, non-moveable lump approx 1cm in diameter on the right occiput of patient's head. Normal surrounding hair growth. No tenderness to palpation. No erythema or warmth. Neuro General: gait normal and no focal motor deficits Psych Appearance: grossly normal Mental Status: mental status grossly normal Speech and movement: Normal speech and movement present Assessment & Plan Assessment & Plan (1) Localized swelling, mass and lump, head: Code(s): R22.0 - Localized swelling, mass and lump, head Plan: Patient has a small lesion as described above on the right occiput of her head. This could potentially represent a pilar cyst. There are not any indications at this time that she has any infectious process going on. Neuros are normal. She has been having some frontal headaches w/o any vision changes. I discussed with patient that I will copy note to her PCP Dr. Culp for any ongoing maintenance/monitoring/imaging of this. She was afraid it was a skull based tumor however we reviewed that this would not be palpable. We discussed that if this increases in size, becomes painful, or any new symptoms develop prior to her next PCP visit, she can return to the clinic for further evaluation. She agrees to plan. Coding Level of Care Code Est Pt Level 3 (88764) Diagnoses Localized swelling, mass and lump, head R22.0
== END 2023-08-18 15:30 | disposition home or self-care (01) ==
PROVIDERS: PCP Internal Medicine; Visit Provider Nurse Practitioner Family
DX: R22.0 Localized swelling, mass and lump, head (principal)
CPT/HCPCS: 99213

== ENCOUNTER 2023-09-07 11:21 | Outpatient (AMB) | payer OTHER, SELFPAY ==
--- NOTE | 2023-09-07 11:20 | A.OFFVIS_ITS ---
Intake Vital Signs 09/07/23 11:21 Height 5 ft 1 in Weight 142 lb 3.17 oz BMI 26.9 BP 118/78 Blood Pressure Location Lt brachial Position Sitting Pulse 67 Pulse Source Pulse Oximeter Intake Visit Reasons: DM Intake Note: Patient presents today to follow up on D2MT. Last Diabetic Eye exam:2022 Last Podiatry Visit:None Random Glucose: 105 mg/dl HgA1C: 6.4% Make Up Arranger Required: No Accompanied by: Self / Same As Patient Allergies linagliptin [From Tradjenta] Allergy (Unknown, Verified 09/07/23 11:28) pancreatitis losartan Allergy (Unknown, Verified 09/07/23 11:28) Unknown metformin [METFORMIN] Allergy (Unknown, Verified 09/07/23 11:28) UNKNOWN, stomach pain pravastatin Allergy (Unknown, Verified 09/07/23:) joint pain dulaglutide [From Trulicity] Adverse Reaction (Intermediate, Verified 09/07/23 11:28) fatigue HPI HPI Comments History of Present Illness Details 62 YO F who is seen in consultation for T2DM at the request of PCP. Initially diagnosed with T2DM in [address] Martinez for yrs at [facility] Was initially started on treatment with metformin had GI side effects, insulin when preganant . Trulicity caused exhaustion. Not took Ozempic . Took Victoza had side effects Current regimen Jardiance 25 mg QD. Mounjaro 2.5 mg Qwkly Cici download shows she is using the sensor 69% of the time. Average glucose is 121 with G mi of 6.2% and variability 24.6%. 95% range with 5% hyperglycemia and no hypoglycemia Family history of T2DM in mother , father , grndparents, siblings . Has eyes checked yearly, last eye exam 01/2023 , denies retinopathy. Has neuropathy, not sees podiatry. Denies nephropathy, on DINAH/ARB. . Has HLD, on statin. . Denies CAD. Had diabetes education 10 years ago. [facility] Medical History Fatigue Sleep apnea Pre-employment examination Depression Menopause Diabetes mellitus, type 2 Hypercholesteremia Asthma Arthralgia Surgical History History of tooth extraction History of carpal tunnel surgery Hx of bilateral breast reduction surgery Hx of section History of surgery Hx of cholecystectomy Family History Father Diabetes mellitus Mother Diabetes mellitus Social History Housing: House Alcohol intake: never Patient Tobacco Use Status: Never used Tobacco e-Cigarette/Vaping Use: Never Used Current occupational status: employed Cognitive needs: No Hearing needs: No Vision needs: Yes Physical Exam Vital Signs: Last Vital Signs Pulse 67 09/07/23 11:21 BP 118/78 09/07/23 11:21 BMI result Body Mass Index 26.9 Absence of Cushingoid features. Absence of acromegalic features. Neck exam reveals nl size thyroid about 15 gms. No thyroid nodules palpable. No carotid bruits present. Lungs CTA. Heart S1 S2, Reg R/R. No M/R/ G. Skin exam reveals absence of vitiligo or acanthosis nigricans. Abdominal exam reveals Soft NT/ND with NA BS. No organomegaly present. Neck Other: . Extrem Other: Visual exam of foot performed. No ulcerations or open lesions. No onchomycosis, no callouses.Pulses 2 + distally Sensation intact to monofilament exam. Vibratory sensation sensed is intact with 128 Hz tuning fork Results AMB Hemoglobin A1c AMB Hemoglobin A1c 6.4 % Last Edit by Vanessa Goodman on 09/07/23 12:07 Results Reviewed Results Reviewed: Laboratory Last Values Glucose (Clinic) 105 mg/dL (60-115) 09/07/23 11:32 Assessment & Plan Assessment & Plan (1) Diabetes mellitus, type 2: Comment: Intolerant to metformin Trulicity Code(s): E11.9 - Type 2 diabetes mellitus without complications Plan: This is a 63-year-old white female with a history of type 2 diabetes being treated with Jardiance and Mounjaro with excellent improved glycemic control and no known microvascular or macrovascular complications. Plan is to continue the current regimen. At this point, patient returned to the care of her primary care provider and returned back to endocrinology should HbA1c deteriorate Orders: Orders AMB Hemoglobin A1c Today E11.9 - Type 2 diabetes mellitus without complications Medications: New tirzepatide (Mounjaro) 5 mg (0.5 mL) subcut QWEEK 2 mL 4RF Discontinued tirzepatide (Mounjaro) Discontinued Reason: Doctor's Order 2.5 mg (0.5 mL) subcut QWEEK 2 mL 5RF Coding Level of Care Code Est Pt Level 4 (44556) Diagnoses Diabetes mellitus, type 2 E11.9
[2023-09-07 11:21] VITALS: BP 118/78; PULSE 67; BMI 26.9
[2023-09-07 11:36] LABS: Glucose, Whole Blood 105 mg/dL (60-115)
== END 2023-09-07 12:12 | disposition home or self-care (01) ==
PROVIDERS: PCP Internal Medicine; Visit Provider Internal Medicine Endocrinology, Diabetes & Metabolism
DX: E11.9 Type 2 diabetes mellitus without complications (principal)
CPT/HCPCS: 99214

== ENCOUNTER → 2023-09-07 11:21 | Outpatient (BNVA) | payer OTHER, SELFPAY | PROVIDERS: PCP Internal Medicine; Visit Provider Internal Medicine Endocrinology, Diabetes & Metabolism | DX: E11.9 Type 2 diabetes mellitus without complications (principal); Z79.84 Long term (current) use of oral hypoglycemic drugs | CPT/HCPCS: 82947; 83036; 99212 ==

== ENCOUNTER 2023-12-22 13:08 | Outpatient (AMB) | payer OTHER, SELFPAY ==
[2023-12-22 13:38] VITALS: BP 120/68; PULSE 81; O2SAT 97; BMI 25.7
--- NOTE | 2023-12-22 13:38 | MHC.PC.OV ---
Vital Signs 12/22/23 13:38 Height 5 ft 1 in Weight 136 lb BMI 25.7 BP 120/68 Blood Pressure Location Rt brachial Position Sitting Pulse 81 Pulse Source Pulse Oximeter Pulse Oximetry (%) 97 Oxygen Delivery Method Room Air Intake Visit Reasons: Flare up Intake Note: Pt is here today for a sick visit. Pt c/o mid lower back pain that goes down her L leg all the way down to her foot. Pt also c/o numbness in her hip. Allergies linagliptin [From Tradjenta] Allergy (Unknown, Verified 12/22/23 13:43) pancreatitis losartan Allergy (Unknown, Verified 12/22/23 13:43) Unknown metformin [METFORMIN] Allergy (Unknown, Verified 12/22/23 13:43) UNKNOWN, stomach pain pravastatin Allergy (Unknown, Verified 12/22/23 13:43) joint pain dulaglutide [From Trulicity] Adverse Reaction (Intermediate, Verified 12/22/23 13:43) fatigue Tobacco use date assessed: 12/22/23 Dental Screening Dental Screen Date: 12/22/23 Did you have a dental visit in the last 12 months?: Yes Did you have a dental problem in the last 6 months where you did not have access to dental care?: No Was dental information given to patient?: Patient has dentist HPI Flare up HPI Details Pt c/o LBP radiating to L buttock and L foot for 3 days. Pt has been taking Aleve 2 bid with some relief. The pain better when lying down. Patient had [facility] consistent with degenerative joint disease. She reports lower back pain flare up once or twice a month lasting a few days at the time patient denies any change in bladder or bowel habits, weakness or numbness in extremities. Type 2 diabetes is stable on current medications [facility] Medical History Fatigue Sleep apnea Pre-employment examination Depression Menopause Diabetes mellitus, type 2 Hypercholesteremia Asthma Arthralgia Surgical History History of tooth extraction History of carpal tunnel surgery Hx of bilateral breast reduction surgery Hx of section History of surgery Hx of cholecystectomy Family History Father Diabetes mellitus Mother Diabetes mellitus Social History Housing: House Alcohol intake: never Patient Tobacco Use Status: Never used Tobacco e-Cigarette/Vaping Use: Never Used service: No Current occupational status: employed Cognitive needs: No Hearing needs: No Vision needs: Yes Questionnaire Thrive Questionnaire Date Thrive assessed: 09/02/22 AUDIT C Alcohol Use Questionnaire (AUDIT-C) 1. How often do you have a drink containing alcohol?: Never 3. How often do you have six or more drinks on one occasion?: Never Total Score: 0 KATERINA-7 AMB Questionnaire KATERINA-7 Date KATERINA - 7 assessed: 09/02/22 Source: Developed by Drs. Bladimir Smith, Malina Pittman, Reed Bradford and colleagues, with an educational oren from [employer]. Review of Systems Const All systems reviewed & are unremarkable except as noted in HPI and below Eyes Reports no additional complaints Card Reports no additional complaints Resp Reports no additional complaints GI Reports no additional complaints Physical exam (Primary Care) Vital Signs: Last Vital Signs Pulse 81 12/22/23 13:38 BP 120/68 12/22/23 13:38 Pulse Ox 97 12/22/23 13:38 Oxygen Delivery Method Room Air 12/22/23 13:38 BMI result Body Mass Index 25.7 Tobacco/Smoking Status: Tobacco use Status Tobacco use date assessed 12/22/23 12/22/23 13:39 Patient Tobacco Use Status Never used Tobacco 12/22/23 13:39 e-Cigarette/Vaping Use Never Used 12/22/23 13:39 Thrive Assessment: Date of Thrive Assessment Date Thrive assessed 09/02/22 12/22/23 13:39 Const General: no acute distress HENMT Head: Yes normal to inspection Eyes General: appearance normal, both eyes and all related structures Resp Effort & Inspection: normal respiratory effort Auscultation: clear to auscultation bilaterally Cardio Rhythm: regular rhythm Heart sounds: S1 normal heart sound present and S2 normal heart sound present Back/Spine/Pelvis Other: Paraspinal tenderness in the lower lumbar region left more than right, straight leg rising 90 degrees bilaterally, there is slightly decreased range of motion of the left hip, toe heel walk intact bilaterally Assessment and Plan Assessment & Plan (1) Hypertension: Code(s): I10 - Essential (primary) hypertension Plan: Continue medications (2) Hypercholesteremia: Code(s): E78.00 - Pure hypercholesterolemia, unspecified Plan: Continue statin (3) Diabetes mellitus, type 2: Comment: Intolerant to metformin Trulicity Code(s): E11.9 - Type 2 diabetes mellitus without complications Plan: Continue current medications return for physical in February with a fasting labs before (4) Sciatica: Code(s): M54.30 - Sciatica, unspecified side Plan: Meloxicam and baclofen are prescribed and patient will be referred to physical therapy Orders: Orders Comprehensive [place]. Panel Fast 3 Months E11.9 - Type 2 diabetes mellitus without complications, E78.00 - Pure hypercholesterolemia, unspecified, I10 - Essential (primary) hypertension Complete Blood Count Auto Diff 3 Months E11.9 - Type 2 diabetes mellitus without complications, E78.00 - Pure hypercholesterolemia, unspecified, I10 - Essential (primary) hypertension Hemoglobin A1c 3 Months E11.9 - Type 2 diabetes mellitus without complications, E78.00 - Pure hypercholesterolemia, unspecified, I10 - Essential (primary) hypertension Lipid Panel 3 Months E11.9 - Type 2 diabetes mellitus without complications, E78.00 - Pure hypercholesterolemia, unspecified, I10 - Essential (primary) hypertension Microalbumin, Random (w Creat) 3 Months E11.9 - Type 2 diabetes mellitus without complications, E78.00 - Pure hypercholesterolemia, unspecified, I10 - Essential (primary) hypertension Referrals Nutrition/Dietitian Referral E11.9 - Type 2 diabetes mellitus without complications, E78.00 - Pure hypercholesterolemia, unspecified, I10 - Essential (primary) hypertension Medications: New meloxicam 15 mg PO DAILY 10 tabs 0RF baclofen 10 mg PO BEDTIME 14 tabs 0RF Coding Level of Care Code Est Pt Level 3 (65547) Diagnoses Hypertension I10 Hypercholesteremia E78.00 Diabetes mellitus, type 2 E11.9 Sciatica M54.30
== END 2023-12-22 14:12 | disposition home or self-care (01) ==
PROVIDERS: PCP Internal Medicine; Visit Provider Internal Medicine
DX: I10 Essential (primary) hypertension (principal); E78.00 Pure hypercholesterolemia, unspecified; E11.9 Type 2 diabetes mellitus without complications; M54.30 Sciatica, unspecified side
CPT/HCPCS: 99213

== ENCOUNTER 2024-03-22 13:39 | Outpatient (AMB) | payer OTHER, SELFPAY ==
[2024-03-22 13:53] VITALS: BP 120/78; PULSE 90; O2SAT 95; BMI 25.5
--- NOTE | 2024-03-22 13:53 | MHC.PC.OV ---
Vital Signs 03/22/24 13:53 Height 5 ft 1 in Weight 135 lb BMI 25.5 BP 120/78 Blood Pressure Location Lt brachial Position Sitting Pulse 90 Pulse Source Pulse Oximeter Pulse Oximetry (%) 95 Oxygen Delivery Method Room Air Intake Visit Reasons: PE Intake Note: Pt is here today for PE. Allergies linagliptin [From Tradjenta] Allergy (Unknown, Verified 03/22/24 13:55) pancreatitis losartan Allergy (Unknown, Verified 03/22/24 13:55) Unknown metformin [METFORMIN] Allergy (Unknown, Verified 03/22/24 13:55) UNKNOWN, stomach pain pravastatin Allergy (Unknown, Verified 03/22/24 13:55) joint pain dulaglutide [From Trulicity] Adverse Reaction (Intermediate, Verified 03/22/24 13:55) fatigue Medication List - Last Reconciled 03/22/24 by Tessie Culp MD albuterol sulfate 90 mcg/actuation 2 puffs inhalation Q4-6H PRN baclofen 10 mg PO BEDTIME blood-glucose meter (FreeStyle Lite Meter kit) test blood sugar daily bupropion HCl XL 300 mg PO DAILY [id number]-wifwysximggye-rnos 50-300-40 mg (Fioricet) 1 cap PO Q6H PRN duloxetine 90 mg PO QAM empagliflozin (Jardiance) 25 mg PO DAILY eszopiclone 1 mg PO BEDTIME PRN FreeStyle Cici 3 Sensor (blood-glucose sensor) DIRECTED CHANGE EVERY 14 days NS FreeStyle Lite Strips (blood sugar diagnostic) test blood sugar once a day NS ibuprofen 1 tab PO Q8H PRN lancets (FreeStyle Lancets) Test blood sugar once a day levalbuterol tartrate 45 mcg/actuation 1 puff PO Q4H PRN meloxicam 15 mg PO DAILY Mounjaro (tirzepatide) 5 mg (0.5 mL) subcut QWEEK NS prazosin 3 mg PO BEDTIME rosuvastatin (Crestor) 5 mg PO DAILY sumatriptan 20 mg/actuation (Imitrex) 20 mg intranasal Q2H PRN valsartan 80 mg PO DAILY Tobacco use date assessed: 03/22/24 Dental Screening Dental Screen Date: 12/22/23 HPI PE HPI Details Patient presents for PE. PFSH Medical History Fatigue Sleep apnea Pre-employment examination Depression Menopause Diabetes mellitus, type 2 Hypercholesteremia Asthma Arthralgia Surgical History History of tooth extraction History of carpal tunnel surgery Hx of bilateral breast reduction surgery Hx of section History of surgery Hx of cholecystectomy Family History Father Diabetes mellitus Mother Diabetes mellitus Social History Housing: House Alcohol intake: never Patient Tobacco Use Status: Never used Tobacco e-Cigarette/Vaping Use: Never Used service: No Current occupational status: employed Cognitive needs: No Hearing needs: No Vision needs: Yes Questionnaire PHQ-9 Over the last 2 weeks, how often have you been bothered by any of the following problems? 1. Little interest or pleasure in doing things: not at all 2. Feeling down, depressed, or hopeless: not at all 3. Trouble falling or staying asleep, or sleeping too much: more than half the days 4. Feeling tired or having little energy: nearly every day 5. Poor appetite or overeating: not at all 6. Feeling bad about yourself - or that you are a failure or have let yourself or your family down: not at all 7. Trouble concentrating on things, such as reading the newspaper or watching television: not at all 8. Moving or speaking so slowly that other people could have noticed. Or the opposite - being so fidgety or restless that you have been moving around a lot more than usual: not at all 9. Thoughts that you would be better off or of hurting yourself in some way: not at all Total score: 5 Depression Screening Interpretation: Negative Depression Screening Done: Yes Source: Developed by Drs. Bladimir Smith, Malina Pittman, Reed Bradford and colleagues, with an educational oren from [employer]. Thrive Questionnaire Date Thrive assessed: 03/15/24 I am a: Patient What is your living situation today?: I have a steady place to live Within the past 12 months, did the food you bought not last and you didn't have the money to get more?: Sometimes True Within the past 12 months, did you worry whether your food would run out before you got money to buy more?: Sometimes True Do you have trouble paying for medicines?: Yes Do you have trouble getting transportation to medical appointments?: No Do you have trouble paying your heating and electricity bill?: Yes Do you have trouble taking care of your child, family member or friend?: No Do you have trouble with day-to-day activities such as bathing, preparing meals, shopping, managing finances, etc.?: No Are you currently unemployed and looking for a job?: No Are you interested in more education?: No Please select the resources that you would like help with: Housing/Longterm Currently or been in a relationship where the following occur: I choose not to answer THRIVE Score: 3 AUDIT C Alcohol Use Questionnaire (AUDIT-C) 1. How often do you have a drink containing alcohol?: Never Total Score: 0 KATERINA-7 AMB Questionnaire KATERINA-7 Date KATERINA - 7 assessed: 09/02/22 Feeling nervous, anxious, or on edge: 3 = Nearly every day Not being able to stop or control worryin = Not at all Worrying too much about different things: 0 = Not at all Trouble relaxin = Several days Being so restless that it is hard to sit still: 3 = Nearly every day Becoming easily annoyed or irritable: 0 = Not at all Feeling afraid as if something awful might happen: 0 = Not at all Total KATERINA-7 score (0-4 normal; 5-9 mild; 10-14 moderate; 15-21 severe): 7 Source: Developed by Drs. Bladimir Smith, Malina Pittman, Reed Bradford and colleagues, with an educational oren from [employer]. Review of Systems Const All systems reviewed & are unremarkable except as noted in HPI and below Reports no additional complaints Eyes Reports no additional complaints ENT Reports no additional complaints Card Reports no additional complaints Resp Reports no additional complaints GI Reports no additional complaints Reports no additional complaints Physical exam (Primary Care) Vital Signs: Last Vital Signs Pulse 90 03/22/24 13:53 BP 120/78 03/22/24 13:53 Pulse Ox 95 03/22/24 13:53 Oxygen Delivery Method Room Air 03/22/24 13:53 BMI result Body Mass Index 25.5 Tobacco/Smoking Status: Tobacco use Status Tobacco use date assessed 03/22/24 03/22/24 13:58 Patient Tobacco Use Status Never used Tobacco 03/22/24 13:58 e-Cigarette/Vaping Use Never Used 03/22/24 13:58 PHQ-9: PHQ-9 Score PHQ-9: Total score 5 03/22/24 13:58 Depression Screening Interpretation: Negative Thrive Assessment: Date of Thrive Assessment Date Thrive assessed 03/15/24 03/22/24 13:58 Currently or been in a relationship where the following occur: I choose not to answer Const General: no acute distress HENMT Other: 1 cm subcutaneous nodule in the right occipital region, mobile and not tender Ears: hearing grossly normal bilaterally General nose exam: Normal external nose present Mouth: Normal oral and palatal mucosa present Throat: Yes posterior oropharynx normal Eyes General: appearance normal, both eyes and all related structures Neck Neck: Yes no lymphadenopathy and Yes supple Resp Effort & Inspection: normal respiratory effort Auscultation: clear to auscultation bilaterally Cardio Rhythm: regular rhythm Heart sounds: S1 normal heart sound present and S2 normal heart sound present GI Inspection: Yes normal to inspection Palpation (GI): Soft to palpation Percussion: Yes normal to percussion Auscultation: normal bowel sounds Assessment and Plan Assessment & Plan (1) Diabetes mellitus, type 2: Comment: Intolerant to metformin Trulicity Code(s): E11.9 - Type 2 diabetes mellitus without complications Plan: Continue ADA diet Jardiance and Mounjaro. Patient will have fasting blood work at [facility] lab. (2) Hypercholesteremia: Code(s): E78.00 - Pure hypercholesterolemia, unspecified Plan: Continue statin (3) Hypertension: Code(s): I10 - Essential (primary) hypertension Plan: Continue current medications (4) Annual physical exam: Code(s): Z00.00 - Encounter for general adult medical examination without abnormal findings Plan: Well-balanced diet regular physical activity discussed with the patient she declined mammogram Pap smear and colonoscopy. (5) Mass of scalp: Code(s): R22.0 - Localized swelling, mass and lump, head Plan: Patient would like to be referred to surgeon Orders: Orders Complete Blood Count Auto Diff 1 Week E11.9 - Type 2 diabetes mellitus without complications, E78.00 - Pure hypercholesterolemia, unspecified, I10 - Essential (primary) hypertension, Z00.00 - Encounter for general adult medical examination without abnormal findings Hemoglobin A1c 1 Week E11.9 - Type 2 diabetes mellitus without complications, E78.00 - Pure hypercholesterolemia, unspecified, I10 - Essential (primary) hypertension, Z00.00 - Encounter for general adult medical examination without abnormal findings Comprehensive [place]. Panel Fast 1 Week E11.9 - Type 2 diabetes mellitus without complications, E78.00 - Pure hypercholesterolemia, unspecified, I10 - Essential (primary) hypertension, Z00.00 - Encounter for general adult medical examination without abnormal findings Lipid Panel 1 Week E11.9 - Type 2 diabetes mellitus without complications, E78.00 - Pure hypercholesterolemia, unspecified, I10 - Essential (primary) hypertension, Z00.00 - Encounter for general adult medical examination without abnormal findings Microalbumin, Random (w Creat) 1 Week E11.9 - Type 2 diabetes mellitus without complications, E78.00 - Pure hypercholesterolemia, unspecified, I10 - Essential (primary) hypertension, Z00.00 - Encounter for general adult medical examination without abnormal findings Referrals General Surgery Referral R22.0 - Localized swelling, mass and lump, head Medications: Discontinued meloxicam Discontinued Reason: Doctor's Order 15 mg PO DAILY 10 tabs 0RF Coding Level of Care Code Est Pt Prev Care 40-64y(20413) Diagnoses Diabetes mellitus, type 2 E11.9 Hypercholesteremia E78.00 Hypertension I10 Annual physical exam Z00.00 Mass of scalp R22.0
== END 2024-03-22 14:17 | disposition home or self-care (01) ==
PROVIDERS: PCP Internal Medicine; Visit Provider Internal Medicine
DX: Z00.00 Encounter for general adult medical examination without abnormal findings (principal); E11.9 Type 2 diabetes mellitus without complications; E78.00 Pure hypercholesterolemia, unspecified; I10 Essential (primary) hypertension; R22.0 Localized swelling, mass and lump, head
CPT/HCPCS: 99396

== ENCOUNTER 2024-09-17 12:51 | Outpatient (AMB) | payer BC, SELFPAY ==
[2024-09-17 12:55] VITALS: BP 106/70; PULSE 84; O2SAT 98; BMI 25.1
--- NOTE | 2024-09-17 12:55 | MHC.PC.OV ---
Vital Signs 09/17/24 12:55 Height 5 ft 1 in Weight 133 lb BMI 25.1 BP 106/70 Blood Pressure Location Lt brachial Position Sitting Pulse 84 Pulse Source Pulse Oximeter Pulse Oximetry (%) 98 Oxygen Delivery Method Room Air Intake Visit Reasons: 6mnth Follow up Intake Note: Pt is here today for 6 months follow up visit. Allergies linagliptin [From Tradjenta] Allergy (Unknown, Verified 09/17/24 12:56) pancreatitis losartan Allergy (Unknown, Verified 09/17/24 12:56) Unknown metformin [METFORMIN] Allergy (Unknown, Verified 09/17/24 12:56) UNKNOWN, stomach pain pravastatin Allergy (Unknown, Verified 09/17/24 12:56) joint pain dulaglutide [From Trulicity] Adverse Reaction (Intermediate, Verified 09/17/24 12:56) fatigue Medication List - Last Reconciled 09/17/24 by Tessie Culp MD albuterol sulfate 90 mcg/actuation 2 puffs inhalation Q4-6H PRN baclofen 10 mg PO BEDTIME blood-glucose meter (FreeStyle Lite Meter kit) test blood sugar daily bupropion HCl XL 300 mg PO DAILY aeurseamgy-zbsxtshpphrdj-cjig 50-300-40 mg (Fioricet) 1 cap PO Q6H PRN duloxetine 90 mg PO QAM empagliflozin (Jardiance) 25 mg PO DAILY FreeStyle Cici 3 Sensor (blood-glucose sensor) DIRECTED CHANGE EVERY 14 days NS FreeStyle Lite Strips (blood sugar diagnostic) test blood sugar once a day NS ibuprofen 1 tab PO Q8H PRN lancets (FreeStyle Lancets) Test blood sugar once a day levalbuterol tartrate 45 mcg/actuation 1 puff PO Q4H PRN meloxicam 15 mg PO DAILY PRN Mounjaro (tirzepatide) 5 mg (0.5 mL) subcut QWEEK NS prazosin 3 mg PO BEDTIME rosuvastatin 5 mg PO DAILY valsartan 80 mg PO DAILY Tobacco use date assessed: 09/17/24 Dental Screening Dental Screen Date: 09/17/24 Did you have a dental visit in the last 12 months?: Yes Did you have a dental problem in the last 6 months where you did not have access to dental care?: No Was dental information given to patient?: Patient has dentist HPI 6mnth Follow up HPI Details Pt presents for f/u HTN, DM 2, hyperlipid, stable on meds. Patient has been out of [facility] for 1 week because she needs a pre authorization from insurance company. Patient was tolerating medication well with well-controlled diabetes. [facility] Medical History Fatigue Sleep apnea Pre-employment examination Depression Menopause Diabetes mellitus, type 2 Hypercholesteremia Asthma Arthralgia Surgical History History of tooth extraction History of carpal tunnel surgery Hx of bilateral breast reduction surgery Hx of section History of surgery Hx of cholecystectomy Family History Father Diabetes mellitus Mother Diabetes mellitus Social History Housing: House Alcohol intake: never Patient Tobacco Use Status: Never used Tobacco e-Cigarette/Vaping Use: Never Used service: No Current occupational status: employed Cognitive needs: No Hearing needs: No Vision needs: Yes Questionnaire PHQ-9 Over the last 2 weeks, how often have you been bothered by any of the following problems? 1. Little interest or pleasure in doing things: not at all 2. Feeling down, depressed, or hopeless: not at all 3. Trouble falling or staying asleep, or sleeping too much: more than half the days 4. Feeling tired or having little energy: nearly every day 5. Poor appetite or overeating: not at all 6. Feeling bad about yourself - or that you are a failure or have let yourself or your family down: not at all 7. Trouble concentrating on things, such as reading the newspaper or watching television: not at all 8. Moving or speaking so slowly that other people could have noticed. Or the opposite - being so fidgety or restless that you have been moving around a lot more than usual: not at all 9. Thoughts that you would be better off or of hurting yourself in some way: not at all Total score: 5 Depression Screening Interpretation: Negative Depression Screening Done: Yes 64761 - PHQ-9 Billing: Yes Source: Developed by Drs. Bladimir Smith, Malina Pittman, Reed Bradford and colleagues, with an educational oren from [employer]. Thrive Questionnaire Date Thrive assessed: 09/17/24 I am a: Patient What is your living situation today?: I choose not to answer this question Within the past 12 months, did the food you bought not last and you didn't have the money to get more?: I choose not to answer this question Within the past 12 months, did you worry whether your food would run out before you got money to buy more?: I choose not to answer this question Do you have trouble paying for medicines?: I choose not to answer this question Do you have trouble getting transportation to medical appointments?: I choose not to answer this question Do you have trouble paying your heating and electricity bill?: I choose not to answer this question Do you have trouble taking care of your child, family member or friend?: I choose not to answer this question Do you have trouble with day-to-day activities such as bathing, preparing meals, shopping, managing finances, etc.?: I choose not to answer this question Are you currently unemployed and looking for a job?: I choose not to answer this question Are you interested in more education?: I choose not to answer this question Please select the resources that you would like help with: None Currently or been in a relationship where the following occur: I choose not to answer THRIVE Score: 0 AUDIT C Alcohol Use Questionnaire (AUDIT-C) 1. How often do you have a drink containing alcohol?: Never 3. How often do you have six or more drinks on one occasion?: Never Total Score: 0 KATERINA-7 AMB Questionnaire KATERINA-7 Date KATERINA - 7 assessed: 09/17/24 Feeling nervous, anxious, or on edge: 2 = More than half the days Not being able to stop or control worryin = Several days Worrying too much about different things: 0 = Not at all Trouble relaxin = More than half the days Being so restless that it is hard to sit still: 3 = Nearly every day Becoming easily annoyed or irritable: 0 = Not at all Feeling afraid as if something awful might happen: 0 = Not at all Total KATERINA-7 score (0-4 normal; 5-9 mild; 10-14 moderate; 15-21 severe): 8 Source: Developed by Drs. Bladimir Smith, Malina Pittman, Reed Bradford and colleagues, with an educational oren from [employer]. KATERINA-7 Assessment Billing KATERINA-7 Assessment Tool: KATERINA-7 Assessment 47646 Review of Systems Const All systems reviewed & are unremarkable except as noted in HPI and below Eyes Reports no additional complaints ENT Reports no additional complaints Card Reports no additional complaints Resp Reports no additional complaints GI Reports no additional complaints Reports no additional complaints Physical exam (Primary Care) Vital Signs: Last Vital Signs Pulse 84 09/17/24 12:55 BP 106/70 09/17/24 12:55 Pulse Ox 98 09/17/24 12:55 Oxygen Delivery Method Room Air 09/17/24 12:55 BMI result Body Mass Index 25.1 Tobacco/Smoking Status: Tobacco use Status Tobacco use date assessed 09/17/24 09/17/24 12:56 Patient Tobacco Use Status Never used Tobacco 09/17/24 12:56 e-Cigarette/Vaping Use Never Used 09/17/24 12:56 PHQ-9: PHQ-9 Score PHQ-9: Total score 5 09/17/24 13:03 Depression Screening Interpretation: Negative Thrive Assessment: Date of Thrive Assessment Date Thrive assessed 09/17/24 09/17/24 13:03 Currently or been in a relationship where the following occur: I choose not to answer Const General: no acute distress HENMT Head: Yes normal to inspection Mouth: Normal oral and palatal mucosa present Neck Neck: Yes no lymphadenopathy and Yes supple Resp Effort & Inspection: normal respiratory effort Auscultation: clear to auscultation bilaterally Cardio Rhythm: regular rhythm Heart sounds: S1 normal heart sound present and S2 normal heart sound present GI Inspection: Yes normal to inspection Palpation (GI): Soft to palpation Percussion: Yes normal to percussion Auscultation: normal bowel sounds Extrem General: Yes no clubbing, cyanosis or edema Coding Level of Care Code Est Pt Level 4 (08051) Diagnoses Hypertension I10 Hypercholesteremia E78.00 Diabetes mellitus, type 2 E11.9 Additional Codes KATERINA-7 Assessment Billing - KATERINA-7 Assessment Tool: KATERINA-7 Assessment 21384 ([id number]) PHQ-9 - 87336 - PHQ-9 Billing: Yes ([id number]) Assessment & Plan Assessment & Plan (1) Hypertension: Code(s): I10 - Essential (primary) hypertension Category: Medical Plan: Continue current medications (2) Hypercholesteremia: Code(s): E78.00 - Pure hypercholesterolemia, unspecified Category: Medical Plan: Continue statin (3) Diabetes mellitus, type 2: Comment: Intolerant to metformin Trulicity Code(s): E11.9 - Type 2 diabetes mellitus without complications Category: Medical Plan: Continue ADA diet current medications return for fasting blood work. When the results are available pre authorization for Lashanda will be obtained Orders: Orders Complete Blood Count Auto Diff Today E11.9 - Type 2 diabetes mellitus without complications, E78.00 - Pure hypercholesterolemia, unspecified, I10 - Essential (primary) hypertension Lipid Panel Today E11.9 - Type 2 diabetes mellitus without complications, E78.00 - Pure hypercholesterolemia, unspecified, I10 - Essential (primary) hypertension Hemoglobin A1c Today E11.9 - Type 2 diabetes mellitus without complications, E78.00 - Pure hypercholesterolemia, unspecified, I10 - Essential (primary) hypertension TSH reflex Free T4 Today E11.9 - Type 2 diabetes mellitus without complications, E78.00 - Pure hypercholesterolemia, unspecified, I10 - Essential (primary) hypertension Lipid Panel 6 Months E11.9 - Type 2 diabetes mellitus without complications, E78.00 - Pure hypercholesterolemia, unspecified, I10 - Essential (primary) hypertension Complete Blood Count Auto Diff 6 Months E11.9 - Type 2 diabetes mellitus without complications, E78.00 - Pure hypercholesterolemia, unspecified, I10 - Essential (primary) hypertension Comprehensive [place]. Panel Fast Today E11.9 - Type 2 diabetes mellitus without complications, E78.00 - Pure hypercholesterolemia, unspecified, I10 - Essential (primary) hypertension Microalbumin, Random (w Creat) Today E11.9 - Type 2 diabetes mellitus without complications, E78.00 - Pure hypercholesterolemia, unspecified, I10 - Essential (primary) hypertension Hemoglobin A1c 6 Months E11.9 - Type 2 diabetes mellitus without complications, E78.00 - Pure hypercholesterolemia, unspecified, I10 - Essential (primary) hypertension Comprehensive [place]. Panel Fast 6 Months E11.9 - Type 2 diabetes mellitus without complications, E78.00 - Pure hypercholesterolemia, unspecified, I10 - Essential (primary) hypertension Microalbumin, Random (w Creat) 6 Months E11.9 - Type 2 diabetes mellitus without complications, E78.00 - Pure hypercholesterolemia, unspecified, I10 - Essential (primary) hypertension Medications: Changed From meloxicam 15 mg PO DAILY 20 tabs 0RF To meloxicam 15 mg PO DAILY PRN Discontinued sumatriptan 20 mg/actuation (Imitrex) administer into one nostril as a single dose; if 2nd dose needed,administer into other nostril after at least 2 hrs, NTE 2 doses (40 mg) per episode Discontinued Reason: Doctor's Order 20 mg intranasal Q2H PRN 6 ea 0RF migraine headache
--- OUTSIDE RECORDS SUMMARY | 2024-09-17 14:29 | XMS_ITS | Data Portability ---
Author Organization [facility], [address] Address [address] [place] [address] Care Team Providers Care Collections Technician Name Role Phone ABBEYFELISALawson MARÍA Primary Care Provider Assessment No assessment recorded. Plan of Treatment Reminders Order Date Submit Date Provider Last Modified By Organization Details Last Modified Time Details Appointments None recorded. Lab None recorded. Referral None recorded. Procedures None recorded. Surgeries None recorded. Imaging None recorded. Medication Orders amoxicillin 500 mg capsule 2022 023 [id number], [address] [place], [address], 3 12:01:08 Patient TargetsNo targets recorded. Patient InstructionsNo instructions recorded. Reason for Referral None Reported. Problems Name Problem SNOMED Code Status Onset Date Resolution Date Notes Provider Name and Address Organization Details Recorded Time Diabetes mellitus 62164664 Active 2022 Yesenia olson, PA - [facility] 3 10:05:11 Posttraumatic stress disorder 00724167 Active 2022 Yesenia Ritter null, PA - [facility] 3 10:05:17 Depressive disorder 07545093 Active 2022 Yesenia Ritter null, PA - [facility] 3 10:05:23 Hypercholestero lemia 23018371 Active 2022 Yesenia olson, PA - [facility] 3 10:05:30 Hypertensive disorder 34336836 Active 2022 Yesenia olson, PA - [facility] 10:05:39 Problem Notes None recorded. Procedures Surgical History Date Name Laterality Status Provider Name and Address Organization Details Recorded Time extraction of wisdom tooth completed Yesenia Ritter PA - [facility] 10/28/2022 10:07:41 Breast reduction completed Yesenia Ritter PA - [facility] 10/28/2022 10:07:58 delivery completed Yesenia Ritter PA - [facility] 10/28/2022 10:08:03 cholecystectomy completed Yesenia Ritter PA - [facility] 10/28/2022 10:08:12 Carpal tunnel surgery completed Yesenia Ritter PA - [facility] 10/28/2022 10:08:26 repair of tendo achilles completed Yesenia Ritter PA - [facility] 10/28/2022 10:08:39 Imaging Results None recorded. Procedure Notes None recorded. Medical Equipment None Reported. Allergies Allergen ID Allergen Name Allergen Category Reaction Reaction Severity Criticality Documentation Date Start Date Code Code System Note Provider Name and Address Organization Details Recorded Time 665120 metformin medicatio n Not available Not available Not available 10/28/2022 6809 RxNorm Yesenia Ritter whitney PA - [facility] 10:02:25 Medications Name Sig Start Date Stop Date Status Note LastModified by Organization Details LastModified Time amoxicillin 500 mg capsule Take 1 capsule every 8 hours by oral route for 10 days. 2022 active Not Available Not Available Not Avai lable Imitrex active Not Available Not Avail able Not Available prazosin active Not Available Not Avai lable Not Available Wellbutrin SR active Not Available Not Available Not Available rosuvastatin active Not Available Not Available Not Available Jardiance active Not Available Not Angelica ilable Not Available Trulicity active Not Available Not Angelica ilable Not Available Vitals Date Recorded Body height Provider Name an d Address Organization Details Last Updated DateTime 10/28/2022 154.94 cm Yesenia Ritter PA - [facility] 10/28/2022 10:08:57 Date Recorded Body mass index (BMI) Body weight Provider Name and Address Organization Details Last Updated DateTime 10/28/2022 29.9 kg/m2 30280.59 g Yesenia Ritter PA - [facility] 10/28/2022 10:09:01 Date Recorded Pain severity - 0-10 verbal numeric rating [Score] - Reported Provider Name and Address Organization Details Last Updated DateTime 10/28/2022 8 Yesenia Ritter PA - [facility] 10/28/2022 10:09:08 Date Recorded Oxygen saturation Oxygen saturation in Arterial blood by Pulse oximetry Provider Name and Address Organization Details Last Updated DateTime 10/28/2022 99 % 99 % Yesenia Ritter PA - [facility] 10/28/2022 10:10:52 Date Recorded Heart rate Provider Name an d Address Organization Details Last Updated DateTime 10/28/2022 64 /min Yesenia Ritter PA - [facility] 10/28/2022 10:10:55 Date Recorded Respiratory rate Provider Name a nd Address Organization Details Last Updated DateTime 10/28/2022 18 /min Yesenia Ritter PA - [facility] 10/28/2022 10:10:57 Date Recorded Body temperature Provider Name a nd Address Organization Details Last Updated DateTime 10/28/2022 97.8 [degF] Yesenia Ritter PA - [facility] 10/28/2022 10:11:03 Date Recorded Systolic blood pressure Diastolic blood pressure Provider Name and Address Organization Details Last Updated DateTime 10/28/2022 156 mm[Hg] 89 mm[Hg] Yesenia Ritter PA - [facility] 10/28/2022 10:10:47 Social History Question Answer Notes LastModified by Organizat ion Details LastModified Time Tobacco Smoking Status Never Smoker Yesenia Ritter whitney PA - [facility] 10/28/2022 10:07:14 What Is Your Level Of Alcohol Consumption? None Information not available 10/28/2022 Do You Use Any Illicit Or Recreational Drugs? No Information not available 10/28/2022 Have You Recently Traveled Abroad? No Information not available 10/28/2022 Do You Or Have You Ever Used Any Other Forms Of Tobacco Or Nicotine? No Information not available 10/28/2022 Sex: Unknown Functional Status None recorded. Mental Status None recorded. Family History Relationship Description Onset Age of this Age Resolved Age Notes LastModified by Organization Details LastModified Time Mother Diabetes mellitus [email or web address] Not available 2022 10:06:33 Mother Cerebrovascu lar accident [email or web address] Not available 10/2022 10:06:56 Father Diabetes mellitus [email or web address] Not available 2022 10:06:33 Father Cerebrovascu lar accident [email or web address] Not available 10/2022 10:06:56 Maternal Grandfather Diabetes mellitus [email or web address] Not available 2022 10:06:33 Maternal Grandmother Diabetes mellitus [email or web address] Not available 2022 10:06:33 Paternal Grandfather Diabetes mellitus [email or web address] Not available 2022 10:06:33 Paternal Grandmother Diabetes mellitus [email or web address] Not available 2022 10:06:33 Sister Diabetes mellitus [email or web address] Not available 2022 10:06:33 Medical History No medical history recorded. Gynecological HistoryNo gynecological history recorded. Obstetrics History GPAL:G 0 P 0 0 0 0 Immunizations Vaccine Type Date Status Note Provider Nam e and Address Organization Details Recorded Time Influenza, MDCK, quadrivalent, PF 8 completed Yesenia Monfette null, PA - [facility] 10/28/2022 10:02:13 Influenza, recombinant, quadrivalent, PF 0 completed Yesenia Monfette null, PA - [facility] 10/28/2022 10:02:13 Influenza, MDCK, quadrivalent, preservative 9 completed Yesenia Monfette null, PA - [facility] 10/28/2022 10:02:13 COVID-19, mRNA, LNP-S, PF, 100 mcg/0.5mL dose or 50 mcg/0.25mL dose 1 completed Yesenia Monfette null, PA - [facility] 10/28/2022 10:02:13 COVID-19, mRNA, LNP-S, PF, 30 mcg/0.3 mL dose 1 completed Yesenia Monfette null, PA - [facility] 10/28/2022 10:02:13 COVID-19, mRNA, LNP-S, PF, 30 mcg/0.3 mL dose 1 completed Yesenia Monfette null, PA - [facility] 10/28/2022 10:02:13 COVID-19, mRNA, LNP-S, bivalent, PF, 50 mcg/0.5 mL or 25mcg/0.25 mL dose 2 completed Yesenia Monfette null, PA - [facility] 10/28/2022 10:02:13 pneumococcal polysaccharide PPV23 6 completed Yesenia Monfette null, PA - [facility] 10/28/2022 10:02:13 Tdap 5 completed Yesenia Monfette null, PA - [facility] 10/28/2022 10:02:13 Influenza, split virus, trivalent, preservative 0 completed Yesenia Monfette null, PA - [facility] 10/28/2022 10:02:13 Hep B, adult 2 completed Yesenia Monfette null, PA - [facility] 10/28/2022 10:02:13 Hep B, adult 1 completed Yesenia Monfette null, PA - [facility] 10/28/2022 10:02:13 Influenza, split virus, quadrivalent, PF 1 completed Yesenia Monfette null, PA - [facility] 10/28/2022 10:02:13 Influenza, split virus, quadrivalent, PF 2 completed Eysenia Monfette null, PA - [facility] 10/28/2022 10:02:13 Past Encounters Encounter ID Performer Location Encounter Start Date Encounter Closed Date Diagnosis/Indication Diagnosis SNOMED-CT Code Diagnosis ICD10 Code Diagnosis Note [id number] [address] [address] 03/06/2018 13:36:33 03/06/2018 15:05:17 [id number] KAI ORTA MD [address] [address] 10/28/2022 08:26:58 10/28/2022 12:02:44 Dental caries 66575747 K02.9 Dental Care:Gum PainTea Tree Oil Mouthwash- Desert Essence - Tea Tree Oil Mouthwash - Spearmint ( or other available brand at local store) Tooth PainClove Oil For Tooth Pain(ask your pharmacist for this) Atypical facial pain 713 84094 G50.1 Health Concerns Section Related Observation LastModified by Organization Detai ls LastModified Time None Recorded Concern Status LastModified by Organization Details LastModified Time None Recorded Advance Directives Directive None Recorded Payers Encounter Date Sequence Insurance Name Policy Number Policy Campbell Covered Member ID Campbell Member ID Guarantor Name 03/06/2018 1 [facility] ([facility] RODDY Raphael [id number] Katalina Raphael 10/28/2022 1 [facility] [place] ([facility]) RODDY Raphael [id number] Katalina Raphael Notes Date Note Type Note Provider Name and Address Organization Details Recorded Time 10/28/2022 text/html Dental ProblemReported bypatient.Onset2 weeks ago; gradual onset; Hx of dental caries, and bruxism. Locationlower; central incisor; lateral incisor Symptomspain;sensitiv ity right sided mouth pain x2 weeks KAI ORTA MD [address] [place], [id number], [place] - [facility] 10/28/2022 12:02:20 OBGyn Episode No OBEpisode recorded.
== END 2024-09-17 15:30 | disposition home or self-care (01) ==
PROVIDERS: PCP Internal Medicine; Visit Provider Internal Medicine
DX: I10 Essential (primary) hypertension (principal); E78.00 Pure hypercholesterolemia, unspecified; E11.9 Type 2 diabetes mellitus without complications

== ENCOUNTER → 2024-09-17 12:51 | Outpatient (BNVA) | payer OTHER, SELFPAY | PROVIDERS: PCP Internal Medicine; Visit Provider Internal Medicine | DX: I10 Essential (primary) hypertension (principal); E78.00 Pure hypercholesterolemia, unspecified; E11.9 Type 2 diabetes mellitus without complications | CPT/HCPCS: 96127 ==

== ENCOUNTER 2024-09-18 13:30 | Outpatient (REF) | payer BC, SELFPAY ==
--- OUTSIDE RECORDS SUMMARY | 2024-09-18 15:38 | XMS_ITS | Data Portability ---
Author Organization [facility], [address] Address [address] [place] [address] Care Team Providers Care Financial Advocate Name Role Phone ABBEYFELISALawson MARÍA Primary Care Provider Assessment No assessment recorded. Plan of Treatment Reminders Order Date Submit Date Provider Last Modified By Organization Details Last Modified Time Details Appointments None recorded. Lab None recorded. Referral None recorded. Procedures None recorded. Surgeries None recorded. Imaging None recorded. Medication Orders amoxicillin 500 mg capsule 2022 023 [facility]/Pharmacy #[id number], [address] [place], [address], 3 12:01:08 Patient TargetsNo targets recorded. Patient InstructionsNo instructions recorded. Reason for Referral None Reported. Problems Name Problem SNOMED Code Status Onset Date Resolution Date Notes Provider Name and Address Organization Details Recorded Time Diabetes mellitus 63477708 Active 2022 Yesenia olson, PA - [facility] 3 10:05:11 Posttraumatic stress disorder 82065002 Active 2022 Yesenia Ritter null, PA - [facility] 3 10:05:17 Depressive disorder 94427798 Active 2022 Yesenia Ritter null, PA - [facility] 3 10:05:23 Hypercholestero lemia 63723138 Active 2022 Yesenia olson, PA - [facility] 3 10:05:30 Hypertensive disorder 13024320 Active 2022 [facility]son, [facility] - [facility] [...] Name and Address Organization Details Recorded Time 741068 metformin medicatio n Not available Not available [...] Details Last Updated DateTime 10/28/2022 29.9 kg/m2 63775.59 g Yesenia Ritter PA - [facility] [...] Influenza, split virus, quadrivalent, PF 2 completed Yesenia Monfette null, PA - [facility] 10/28/2022 10:02:13 Past Encounters Encounter ID Performer Location Encounter Start Date Encounter Closed Date Diagnosis/Indication Diagnosis SNOMED-CT Code Diagnosis ICD10 Code Diagnosis Note [id number] [address] [address] 03/06/2018 13:36:33 03/06/2018 15:05:17 [id number] KAI ORTA MD [address] [address] 10/28/2022 08:26:58 10/28/2022 12:02:44 Dental caries 64180492 K02.9 Dental Care:Gum PainTea Tree Oil Mouthwash- Desert Essence - Tea Tree Oil Mouthwash - Spearmint ( or other available brand at local store) Tooth PainClove Oil For Tooth Pain(ask your pharmacist for this) Atypical facial pain 713 20762 G50.1 Health Concerns Section Related Observation LastModified by Organization Detai ls LastModified Time None Recorded Concern Status LastModified by Organization Details LastModified Time None Recorded Advance Directives Directive None Recorded Payers Encounter Date Sequence Insurance Name Policy Number Policy Campbell Covered Member ID Campbell Member ID Guarantor Name 03/06/2018 1 [facility] ([facility] RODDY Raphael [id number] Katalina Raphael 10/28/2022 1 [facility] 5 CUPS and some sugar ([facility]) RODDY Raphael [id number] Katalina Raphael Notes Date Note Type Note Provider Name and Address Organization Details Recorded Time 10/28/2022 text/html Dental ProblemReported bypatient.Onset2 weeks ago; gradual onset; Hx of dental caries, and bruxism. Locationlower; central incisor; lateral incisor Symptomspain;sensitiv ity right sided mouth pain x2 weeks KAI ORTA MD [address] [place], [address], [place] - [facility] 10/28/2022 12:02:20 OBGyn Episode No OBEpisode recorded.
[2024-09-18 16:29] LABS: MANUAL DIFF FLAG NO
[2024-09-18 16:34] LABS: Basophils Percent Auto 0.6 % (0-2); Eosinophils Absolute Auto 0.1 X10*3/uL (0.0-0.4); Eosinophils Percent Auto 1.2 % (0-4); Hematocrit 40.4 % (37.0-47.0); Hemoglobin 13.3 g/dl (12.0-16.0); Imm Gran Abs Auto 0.01 X10*3/uL (0.00-0.03); Imm Gran Pct Auto 0.2 % (0.0-0.4); Lymphocytes Absolute Auto 1.8 X10*3/uL (1.2-4.9); Lymphocytes Percent Auto 27.3 % (20-40); Mean Corpuscular HGB Conc 32.9 g/dl (31.0-35.0); Mean Corpuscular Hemoglobin 31.4 pg (27.0-33.0); Mean Corpuscular Volume 95.3 fL (80.0-98.0); Monocytes Absolute Auto 0.4 X10*3/uL (0.1-1.2); Monocytes Percent Auto 6.4 % (2-11); Neutrophils Absolute Auto 4.2 x10*3/uL (2.0-8.3); Neutrophils Percent Auto 64.3 % (45-73); Platelet Count 238 X10*3/uL (160-400); Red Blood Count 4.24 X10*6/uL (4.20-5.50); Red Cell Distribution Width 13.2 % (11.0-16.0); White Blood Count 6.5 X10*3/uL (4.8-10.8)
[2024-09-18 16:51] LABS: Estimated Average Glucose 123 mg/dL; Hemoglobin A1C 145.5321 umol/L; Hemoglobin A1c % 5.9 % (<6.0); Total Hemoglobin (HGBA1C) 3519.1207 umol/L
[2024-09-18 16:55] LABS: Alanine Aminotransferase 25 U/L (0-31); Albumin Level 4.1 g/dL (3.5-5.0); Anion Gap 12 (12-20); Aspartate Amino Transferase 23 U/L (5-31); Bilirubin Total 0.3 mg/dL (0.0-1.0); Blood Urea Nitrogen 15 mg/dL (9-16); Calcium 9.1 mg/dL (8.4-10.2); Carbon Dioxide 25 mmol/L (22-29); Chloride 108 mmol/L (96-108); Cholesterol 135 mg/dL (<200); Estimated Glomerular Filt Rate > 60; Glucose Fasting 109 mg/dL (60-99); HDL Cholesterol 55 mg/dL (>40); LDL Cholesterol Calculated 61 mg/dL (<100); Potassium 4.2 mmol/L (3.3-5.1); Sodium 141 mmol/L (135-145); Total Protein 7.7 g/dL (6.5-8.0); Triglycerides 97 mg/dL (<150)
[2024-09-18 16:58] LABS: Creatinine Urine 153.51 mg/dL; Microalbum/Creatinine Ratio Ur 15.6 ug/mg cr (<30)
[2024-09-18 17:01] LABS: Alkaline Phosphatase 66 U/L (39-117)
[2024-09-18 17:13] LABS: TSH reflex Free T4 1.73 uIU/mL (0.32-4.0)
== END 2024-09-18 13:31 | disposition home or self-care (01) ==
LOC: HO.HMGCLDS 13:30
PROVIDERS: PCP Internal Medicine; Visit Provider Internal Medicine
DX: E11.9 Type 2 diabetes mellitus without complications (principal); E78.00 Pure hypercholesterolemia, unspecified; I10 Essential (primary) hypertension
CPT/HCPCS: 36415; 80053; 80061; 82043; 82570; 83036; 84443; 85025

== ENCOUNTER 2025-02-12 12:34 | Outpatient (AMB) | payer BC, SELFPAY ==
--- NOTE | 2025-02-12 12:36 | A.OFFPC_ITS ---
Vital Signs 02/12/25 12:37 Height 5 ft 1 in Weight 132 lb BMI 24.9 BP 116/78 Blood Pressure Location Lt brachial Position Sitting Respiration 18 Pulse 79 Pulse Source Pulse Oximeter Temp 97.6 F Temp Source Oral Pulse Oximetry (%) 98 Oxygen Delivery Method Room Air Intake Visit Reasons: migraine Intake Note: Pt is here today for a follow up to discuss migraine medication. Allergies linagliptin (From Tradjenta) Allergy (Unknown, Verified 02/12/25 12:40) pancreatitis losartan Allergy (Unknown, Verified 02/12/25 12:40) Unknown metformin (METFORMIN) Allergy (Unknown, Verified 02/12/25 12:40) UNKNOWN, stomach pain pravastatin Allergy (Unknown, Verified 02/12/25 12:40) joint pain dulaglutide (From Trulicity) Adverse Reaction (Intermediate, Verified 02/12/25 12:40) fatigue Medication List - Last Reconciled 02/12/25 by Tessie Culp MD albuterol sulfate 90 mcg/actuation 2 puffs inhalation Q4-6H PRN baclofen 10 mg PO BEDTIME blood-glucose meter (FreeStyle Lite Meter kit) test blood sugar daily blood-glucose sensor (Ascendify G7 Sensor device) Test blood sugar 3 times per day bupropion HCl XL 300 mg PO DAILY swhtrbezvx-bnzrzhpfpngvc-iukz 50-300-40 mg (Fioricet) 1 cap PO Q6H PRN duloxetine 90 mg PO QAM empagliflozin (Jardiance) 25 mg PO DAILY FreeStyle Cici 3 Sensor (blood-glucose sensor) DIRECTED CHANGE EVERY 14 days NS FreeStyle Lite Strips (blood sugar diagnostic) test blood sugar once a day NS ibuprofen 1 tab PO Q8H PRN lancets (FreeStyle Lancets) Test blood sugar once a day levalbuterol tartrate 45 mcg/actuation 1 puff PO Q4H PRN meloxicam 15 mg PO DAILY Mounjaro (tirzepatide) 5 mg (0.5 mL) subcut QWEEK NS prazosin 3 mg PO BEDTIME rosuvastatin 5 mg PO DAILY valsartan 80 mg PO DAILY Tobacco use date assessed: 02/12/25 Dental Screening Dental Screen Date: 09/17/24 HPI migraine HPI Details Patient presents for follow-up. Type 2 diabetes is well controlled on current medications. Chronic depression and anxiety are stable on medications and patient is established with a psychiatrist. Patient complains of chronic migraine headaches for many years has been taking Imitrex at least 3 times patient tried prophylaxis in the past with neurologist with Topamax nortriptyline calcium channel blockers without significant improvement. She is interested in trying Nurtec for treatment and prophylaxis [facility] Medical History (Updated 02/12/25 @ 15:51 by Tessie Culp MD) Migraine headache Fatigue Sleep apnea Pre-employment examination Depression Menopause Diabetes mellitus, type 2 Hypercholesteremia Asthma Arthralgia Surgical History History of tooth extraction History of carpal tunnel surgery Hx of bilateral breast reduction surgery Hx of section History of surgery Hx of cholecystectomy Family History Father Diabetes mellitus Mother Diabetes mellitus Social History Housing: House Alcohol intake: never Patient Tobacco Use Status: Never used Tobacco e-Cigarette/Vaping Use: Never Used service: No Current occupational status: employed Cognitive needs: No Hearing needs: No Vision needs: Yes Questionnaire PHQ-9 Over the last 2 weeks, how often have you been bothered by any of the following problems? 1. Little interest or pleasure in doing things: not at all 2. Feeling down, depressed, or hopeless: not at all 3. Trouble falling or staying asleep, or sleeping too much: several days 4. Feeling tired or having little energy: nearly every day 5. Poor appetite or overeating: not at all 6. Feeling bad about yourself - or that you are a failure or have let yourself or your family down: not at all 7. Trouble concentrating on things, such as reading the newspaper or watching television: not at all 8. Moving or speaking so slowly that other people could have noticed. Or the opposite - being so fidgety or restless that you have been moving around a lot more than usual: not at all 9. Thoughts that you would be better off or of hurting yourself in some way: not at all Total score: 4 Depression Screening Interpretation: Negative Depression Screening Done: Yes 15460 - PHQ-9 Billing: Yes Source: Developed by Drs. Bladimir Smith, Reed Hwoell and colleagues, with an educational oren from [employer]. Thrive Questionnaire Date Thrive assessed: 09/17/24 I am a: Patient What is your living situation today?: I choose not to answer this question Within the past 12 months, did the food you bought not last and you didn't have the money to get more?: I choose not to answer this question Within the past 12 months, did you worry whether your food would run out before you got money to buy more?: I choose not to answer this question Do you have trouble paying for medicines?: I choose not to answer this question Do you have trouble getting transportation to medical appointments?: I choose not to answer this question Do you have trouble paying your heating and electricity bill?: I choose not to answer this question Do you have trouble taking care of your child, family member or friend?: I choose not to answer this question Do you have trouble with day-to-day activities such as bathing, preparing meals, shopping, managing finances, etc.?: I choose not to answer this question Are you currently unemployed and looking for a job?: I choose not to answer this question Are you interested in more education?: I choose not to answer this question Please select the resources that you would like help with: None Currently or been in a relationship where the following occur: I choose not to answer THRIVE Score: 0 KATERINA-7 AMB Questionnaire KATERINA-7 Date KATERINA - 7 assessed: 09/17/24 Source: Developed by Drs. Bladimir Smith, Reed Howell and colleagues, with an educational oren from [employer]. Review of Systems Const All systems reviewed & are unremarkable except as noted in HPI and below ENT Reports no additional complaints Card Reports no additional complaints Resp Reports no additional complaints GI Reports no additional complaints Physical exam (Primary Care) Vital Signs: Last Vital Signs Temp 97.6 F 02/12/25 12:37 Pulse 79 02/12/25 12:37 Resp 18 02/12/25 12:37 BP 116/78 02/12/25 12:37 Pulse Ox 98 02/12/25 12:37 Oxygen Delivery Method Room Air 02/12/25 12:37 BMI result Body Mass Index 24.9 Tobacco/Smoking Status: Tobacco use Status Tobacco use date assessed 02/12/25 02/12/25 12:43 Patient Tobacco Use Status Never used Tobacco 02/12/25 12:37 e-Cigarette/Vaping Use Never Used 02/12/25 12:37 PHQ-9: PHQ-9 Score PHQ-9: Total score 4 02/12/25 12:37 Depression Screening Interpretation: Negative Thrive Assessment: Date of Thrive Assessment Date Thrive assessed 09/17/24 02/12/25 12:37 Currently or been in a relationship where the following occur: I choose not to answer Const General: no acute distress HENMT Ears: hearing grossly normal bilaterally Eyes General: appearance normal, both eyes and all related structures Resp Effort & Inspection: normal respiratory effort Auscultation: clear to auscultation bilaterally Cardio Rhythm: regular rhythm Heart sounds: S1 normal heart sound present and S2 normal heart sound present Coding Level of Care Code Est Pt Level 4 (01600) Diagnoses Lower back pain M54.50 Depression F32.9 Diabetes mellitus, type 2 E11.9 Migraine headache G43.909 Additional Codes PHQ-9 - 28279 - PHQ-9 Billing: Yes ([id number]) Assessment & Plan Assessment & Plan (1) Lower back pain: Code(s): M54.50 - Low back pain, unspecified Category: Medical Plan: Referred to physical therapy for chronic lower back pain (2) Depression: Code(s): F32.9 - Major depressive disorder, single episode, unspecified Category: Medical Plan: Continue current medications (3) Diabetes mellitus, type 2: Comment: Intolerant to metformin Trulicity Code(s): E11.9 - Type 2 diabetes mellitus without complications Category: Medical Plan: ADA diet regular exercise discussed with the patient . increase Mounjaro to 5 mg a day check fasting blood work (4) Migraine headache: Code(s): G43.909 - Migraine, unspecified, not intractable, without status migrainosus Category: Medical Plan: Try Nurtec follow-up in 1 month Orders: Orders PT Evaluation and Treatment Today M54.50 - Low back pain, unspecified Medications: New Nurtec ODT (rimegepant) 75 mg PO Q OTHER DAY 30 tabs 1RF NS Discontinued zidgbbjlqb-mlssscfzovqtc-dahh 50-300-40 mg (Fioricet) Discontinued Reason: Doctor's Order 1 cap PO Q6H PRN 20 caps 0RF headache Patient Inst[facility]: [facility]
[2025-02-12 12:37] VITALS: BP 116/78; PULSE 79; RESP 18; TEMP 36.4; O2SAT 98; BMI 24.9
--- OUTSIDE RECORDS SUMMARY | 2025-02-12 14:24 | XMS_ITS | Data Portability ---
Author Organization [facility], [address] Address [address] [place] [address] Care Team Providers Care Coin Dealer Name Role Phone ABBEYFELISALawson MARÍA Primary Care Provider [phone] Assessment No assessment recorded. Plan of Treatment Reminders Order Date Submit Date Provider Last Modified By Organization Details Last Modified Time Details Appointments None recorded. Lab None recorded. Referral None recorded. Procedures None recorded. Surgeries None recorded. Imaging None recorded. Medication Orders amoxicillin [address] [facility]/Pharmacy #[id number], [address] [place], [address], 3 12:01:08 Patient TargetsNo targets recorded. Patient InstructionsNo instructions recorded. Reason for Referral None Reported. Problems Name Problem SNOMED Code Status Onset Date Resolution Date Notes Provider Name and Address Organization Details Recorded Time Diabetes mellitus 27896589 Active 2022 Yesenia olson, PA - [facility] 3 10:05:11 Posttraumatic stress disorder 01947363 Active 2022 Yesenia Ritter null, PA - [facility] 3 10:05:17 Depressive disorder 87303213 Active 2022 Yesenia Ritter null, PA - [facility] 3 10:05:23 Hypercholestero lemia 26851219 Active 2022 Yesenia olson, PA - [facility] 3 10:05:30 Hypertensive disorder 62465129 Active 2022 Yesenia olson, PA - [facility] 3 10:05:39 Problem Notes None recorded. Procedures Surgical History Date Name Laterality Status Provider Name and Address Organization Details Recorded Time extraction of wisdom tooth completed Yesenia Lyncherasmo PA - [facility] 10/28/2022 10:07:41 Breast reduction completed Yesenia Snyderhorace PA - [facility] 10/28/2022 10:07:58 delivery completed Yesenia Lyncherasmo PA - [facility] 10/28/2022 10:08:03 cholecystectomy completed Yesenia Snyderhorace PA - [facility] 10/28/2022 10:08:12 Carpal tunnel surgery completed Yesenia Lyncherasmo PA - [facility] 10/28/2022 10:08:26 repair of tendo achilles completed Yesenia Lyncherasmo PA - [facility] 10/28/2022 10:08:39 Imaging Results None recorded. Procedure Notes None recorded. Medical Equipment None Reported. Allergies Allergen ID Allergen Name Allergen Category Reaction Reaction Severity Criticality Documentation Date Start Date Code Code System Note Provider Name and Address Organization Details Recorded Time 578567 metformin medicatio n Not available Not available Not available 10/28/2022 6809 RxNorm Yesenia Lynchrandeehorace whitney PA - [facility] 3 10:02:25 Medications Name Sig Start Date Stop [...] Not Available Vitals Date Recorded Body height Body mass index (BMI) Body weight Oxygen saturation Oxygen saturation in Arterial blood by Pulse oximetry Heart rate Respiratory rate Body temperature Systolic blood pressure Diastolic blood pressure Provider Name and Address Organization Details Last Updated DateTime 3 154.94 cm 29.9 kg/m2 45201.5 9 g 99 % 99 % 64 /min 18 /min 97.8 [degF] 156 mm[Hg] 89 mm[Hg] Yesenia Ritter [facility] 10:10:47 Social History Question Answer Notes LastModified by Organizat ion Details LastModified Time Tobacco Smoking Status Never Smoker Yesenia Ritter BRIDGET olson [facility] 10/28/2022 10:07:14 Have You Recently Traveled Abroad? No Information not available 10/28/2022 Sex: Unknown Functional Status Question Answer Note LastModified by Organizat ion Details LastModified Time Do you use any illicit or recreational drugs? No Information not available 10/28/2022 Do you or have you ever used any other forms of tobacco or nicotine? No Information not available 10/28/2022 What is your level of alcohol consumption? None Information not available 10/28/2022 Mental Status None recorded. Family History Relationship [...] Influenza, MDCK, quadrivalent, PF 8 completed Yesenia Ritter [facility] 10/28/2022 10:02:13 Influenza, recombinant, quadrivalent, [...] split virus, quadrivalent, PF 1 completed Yesenia Ritter whitney, PA - [facility] 10/28/2022 10:02:13 Influenza, split virus, quadrivalent, PF 2 completed Yesenia olson, PA - [facility] 10/28/2022 10:02:13 Past Encounters Encounter ID Performer Location Encounter Start Date Encounter Closed Date Diagnosis/Indication Diagnosis SNOMED-CT Code Diagnosis ICD10 Code Diagnosis Note [id number] [facility] [address] [address] [place] [address] 03/06/2018 13:36:33 03/06/2018 15:05:17 [id number] KAI ORTA MD [address] [place] [address] 10/28/2022 08:26:58 10/28/2022 12:02:44 Dental caries 40111539 K02.9 Dental Care:Gum PainTea Tree Oil Mouthwash- Desert Essence - Tea Tree Oil Mouthwash - Spearmint ( or other available brand at local store) Tooth PainClove Oil For Tooth Pain(ask your pharmacist for this) Atypical facial pain 713 04435 G50.1 Health Concerns Section Related Observation LastModified by Organization Detai ls LastModified Time None Recorded Concern Status LastModified by Organization Details LastModified Time None Recorded Advance Directives Directive None Recorded Payers Insurance Date Sequence Insurance Name Policy Number Policy Campbell Covered Member ID Campbell Member ID Guarantor Name 10/28/2022 1 [facility] ([facility] RODDY Raphael [id number] Katalina Raphael Notes Date Note Type Note Provider Name and Address Organization Details Recorded Time 10/28/2022 text/html Dental ProblemReported bypatient.Onset2 weeks ago; gradual onset; Hx of dental caries, and bruxism. Locationlower; central incisor; lateral incisor Symptomspain;sensitiv ity right sided mouth pain x2 weeks KAI ORTA [place] [facility], [address], [place] - [facility] 10/28/2022 12:02:20 OBGyn Episode No OBEpisode recorded.
== END 2025-02-12 13:25 | disposition home or self-care (01) ==
LOC: HO.HMCC 12:34
PROVIDERS: PCP Internal Medicine; Visit Provider Internal Medicine
DX: M54.50 Low back pain, unspecified (principal); F32.9 Major depressive disorder, single episode, unspecified; E11.9 Type 2 diabetes mellitus without complications; G43.909 Migraine, unspecified, not intractable, without status migrainosus

== ENCOUNTER 2025-02-12 13:27 | Outpatient (REF) | payer BC, SELFPAY ==
[2025-02-12 16:15] LABS: MANUAL DIFF FLAG NO
[2025-02-12 16:21] LABS: Basophils Percent Auto 0.6 % (0-2); Eosinophils Absolute Auto 0.1 X10*3/uL (0.0-0.4); Eosinophils Percent Auto 1.2 % (0-4); Hematocrit 38.9 % (37.0-47.0); Hemoglobin 12.9 g/dl (12.0-16.0); Imm Gran Abs Auto 0.01 X10*3/uL (0.00-0.03); Imm Gran Pct Auto 0.2 % (0.0-0.4); Lymphocytes Absolute Auto 1.6 X10*3/uL (1.2-4.9); Lymphocytes Percent Auto 32.3 % (20-40); Mean Corpuscular HGB Conc 33.2 g/dl (31.0-35.0); Mean Corpuscular Hemoglobin 31.5 pg (27.0-33.0); Mean Corpuscular Volume 94.9 fL (80.0-98.0); Mean Platelet Volume 9.8 fL (9.4-12.3); Monocytes Absolute Auto 0.3 X10*3/uL (0.1-1.2); Monocytes Percent Auto 5.6 % (2-11); Neutrophils Absolute Auto 2.9 x10*3/uL (2.0-8.3); Neutrophils Percent Auto 60.1 % (45-73); Platelet Count 251 X10*3/uL (160-400); Red Cell Distribution Width 13.3 % (11.0-16.0); White Blood Count 4.8 X10*3/uL (4.8-10.8)
[2025-02-12 16:34] LABS: Alanine Aminotransferase 20 U/L (0-31); Albumin Level 4.4 g/dL (3.5-5.0); Alkaline Phosphatase 60 U/L (39-117); Anion Gap 11 (12-20); Aspartate Amino Transferase 23 U/L (5-31); Bilirubin Total 0.2 mg/dL (0.0-1.0); Blood Urea Nitrogen 19 mg/dL (9-16); Calcium 9.3 mg/dL (8.4-10.2); Carbon Dioxide 27 mmol/L (22-29); Chloride 106 mmol/L (96-108); Cholesterol 136 mg/dL (<200); Estimated Average Glucose 120 mg/dL; Estimated Glomerular Filt Rate > 60; Glucose Fasting 91 mg/dL (60-99); HDL Cholesterol 48 mg/dL (>40); Hemoglobin A1c % 5.8 % (<6.0); LDL Cholesterol Calculated 67 mg/dL (<100); Potassium 4.1 mmol/L (3.3-5.1); Sodium 140 mmol/L (135-145); Total Hemoglobin (HGBA1C) 3505.4957 umol/L; Total Protein 7.3 g/dL (6.5-8.0); Triglycerides 106 mg/dL (<150)
[2025-02-12 16:59] LABS: Creatinine Urine 124.19 mg/dL; Microalbum/Creatinine Ratio Ur 7.2 ug/mg cr (<30)
== END 2025-02-12 13:28 | disposition home or self-care (01) ==
LOC: HO.HMGCLDS 13:27
PROVIDERS: PCP Internal Medicine; Visit Provider Internal Medicine
DX: G43.909 Migraine, unspecified, not intractable, without status migrainosus (principal); M54.50 Low back pain, unspecified; F32.9 Major depressive disorder, single episode, unspecified; E11.9 Type 2 diabetes mellitus without complications; Z79.85 Long-term (current) use of injectable non-insulin antidiabetic drugs; E78.00 Pure hypercholesterolemia, unspecified; Z13.31 Encounter for screening for depression
CPT/HCPCS: 36415; 80053; 80061; 82043; 82570; 83036; 85025; 96127

== ENCOUNTER 2025-03-14 12:27 | Outpatient (AMB) | payer BC, SELFPAY ==
--- NOTE | 2025-03-14 12:31 | A.OFFPC_ITS ---
Vital Signs 03/14/25 12:32 Height 5 ft 1 in Weight 127 lb BMI 24.0 BP 126/82 Blood Pressure Location Lt brachial Position Sitting Respiration 18 Pulse 83 Pulse Source Pulse Oximeter Temp 97.9 F Temp Source Oral Pulse Oximetry (%) 96 Oxygen Delivery Method Room Air Intake Visit Reasons: 1m follow up Allergies linagliptin (From Tradjenta) Allergy (Unknown, Verified 02/12/25 12:40) pancreatitis losartan Allergy (Unknown, Verified 02/12/25 12:40) Unknown metformin (METFORMIN) Allergy (Unknown, Verified 02/12/25 12:40) UNKNOWN, stomach pain pravastatin Allergy (Unknown, Verified 02/12/25 12:40) joint pain dulaglutide (From Trulicity) Adverse Reaction (Intermediate, Verified 02/12/25 12:40) fatigue Medication List - Last Reconciled 03/14/25 by Tessie Culp MD albuterol sulfate 90 mcg/actuation 2 puffs inhalation Q4-6H PRN blood-glucose meter (FreeStyle Lite Meter kit) test blood sugar daily blood-glucose sensor ([employer] G7 Sensor device) Test blood sugar 3 times per day bupropion HCl XL 300 mg PO DAILY duloxetine 90 mg PO QAM empagliflozin (Jardiance) 25 mg PO DAILY FreeStyle Cici 3 Sensor (blood-glucose sensor) DIRECTED CHANGE EVERY 14 days NS FreeStyle Lite Strips (blood sugar diagnostic) test blood sugar once a day NS ibuprofen 1 tab PO Q8H PRN lancets (FreeStyle Lancets) Test blood sugar once a day levalbuterol tartrate 45 mcg/actuation 1 puff PO Q4H PRN meloxicam 15 mg PO DAILY Mounjaro (tirzepatide) 5 mg (0.5 mL) subcut QWEEK NS Mounjaro (tirzepatide) 5 mg (0.5 mL) subcut QWEEK NS Nurtec ODT (rimegepant) 75 mg PO Q OTHER DAY NS prazosin 3 mg PO BEDTIME rosuvastatin 5 mg PO DAILY valsartan 80 mg PO DAILY Tobacco use date assessed: 03/14/25 Dental Screening Dental Screen Date: 09/17/24 HPI 1m follow up HPI Details Pt presents for follow-up of chronic migraine headaches. Jared has not been helping her headaches. She reports episodes of feeling lightheaded and is concerned about her blood pressure getting low. She has not been monitor her blood pressure at home. Type 2 diabetes is stable on current medications. Patient complains of decreased hearing and would like to be tested. [facility] Medical History Migraine headache Fatigue Sleep apnea Pre-employment examination Depression Menopause Diabetes mellitus, type 2 Hypercholesteremia Asthma Arthralgia Surgical History History of tooth extraction History of carpal tunnel surgery Hx of bilateral breast reduction surgery Hx of section History of surgery Hx of cholecystectomy Family History Father Diabetes mellitus Mother Diabetes mellitus Social History Housing: House Alcohol intake: never Patient Tobacco Use Status: Never used Tobacco e-Cigarette/Vaping Use: Never Used service: No Current occupational status: employed Cognitive needs: No Hearing needs: No Vision needs: Yes Questionnaire Thrive Questionnaire Date Thrive assessed: 09/17/24 I am a: Patient What is your living situation today?: I choose not to answer this question Within the past 12 months, did the food you bought not last and you didn't have the money to get more?: I choose not to answer this question Within the past 12 months, did you worry whether your food would run out before you got money to buy more?: I choose not to answer this question Do you have trouble paying for medicines?: I choose not to answer this question Do you have trouble getting transportation to medical appointments?: I choose not to answer this question Do you have trouble paying your heating and electricity bill?: I choose not to answer this question Do you have trouble taking care of your child, family member or friend?: I choose not to answer this question Do you have trouble with day-to-day activities such as bathing, preparing meals, shopping, managing finances, etc.?: I choose not to answer this question Are you currently unemployed and looking for a job?: I choose not to answer this question Are you interested in more education?: I choose not to answer this question Please select the resources that you would like help with: None Currently or been in a relationship where the following occur: I choose not to answer THRIVE Score: 0 KATERINA-7 AMB Questionnaire KATERINA-7 Date KATERINA - 7 assessed: 09/17/24 Source: Developed by Drs. Bladimir Smith, Malina Pittman, Reed Bradford and colleagues, with an educational oren from [employer]. Review of Systems Const All systems reviewed & are unremarkable except as noted in HPI and below Eyes Reports no additional complaints ENT Reports no additional complaints Card Reports no additional complaints Resp Reports no additional complaints GI Reports no additional complaints Reports no additional complaints Physical exam (Primary Care) Vital Signs: Last Vital Signs Temp 97.9 F 03/14/25 12:32 Pulse 83 03/14/25 12:32 Resp 18 03/14/25 12:32 BP 126/82 03/14/25 12:32 Pulse Ox 96 03/14/25 12:32 Oxygen Delivery Method Room Air 03/14/25 12:32 BMI result Body Mass Index 24.0 Tobacco/Smoking Status: Tobacco use Status Tobacco use date assessed 03/14/25 03/14/25 12:35 Patient Tobacco Use Status Never used Tobacco 03/14/25 12:35 e-Cigarette/Vaping Use Never Used 03/14/25 12:35 Thrive Assessment: Date of Thrive Assessment Date Thrive assessed 09/17/24 03/14/25 12:35 Currently or been in a relationship where the following occur: I choose not to answer Const General: no acute distress HENMT Throat: Yes posterior oropharynx normal Neck Neck: Yes supple Resp Effort & Inspection: normal respiratory effort Auscultation: clear to auscultation bilaterally Cardio Rhythm: regular rhythm Heart sounds: S1 normal heart sound present and S2 normal heart sound present GI Inspection: Yes normal to inspection Coding Level of Care Code Est Pt Level 4 (34544) Diagnoses Hypertension I10 Hypercholesteremia E78.00 Diabetes mellitus, type 2 E11.9 Hearing loss H91.90 Assessment & Plan Assessment & Plan (1) Hypertension: Code(s): I10 - Essential (primary) hypertension Category: Medical Plan: Patient will take a half a tablet of valsartan and will monitor her blood pressure at home when symptomatic (2) Hypercholesteremia: Code(s): E78.00 - Pure hypercholesterolemia, unspecified Category: Medical Plan: Continue statin (3) Diabetes mellitus, type 2: Comment: Intolerant to metformin Trulicity Code(s): E11.9 - Type 2 diabetes mellitus without complications Category: Medical Plan: Continue current medications follow-up in 3 months with a fasting labs before (4) Hearing loss: Code(s): H91.90 - Unspecified hearing loss, unspecified ear Category: Medical Plan: Referred for the hearing test Orders: Orders Comprehensive [place]. Panel Fast 3 Months E11.9 - Type 2 diabetes mellitus without complications, E78.00 - Pure hypercholesterolemia, unspecified, I10 - Essential (primary) hypertension Hemoglobin A1c 3 Months E11.9 - Type 2 diabetes mellitus without complications, E78.00 - Pure hypercholesterolemia, unspecified, I10 - Essential (primary) hypertension Lipid Panel 3 Months E11.9 - Type 2 diabetes mellitus without complications, E78.00 - Pure hypercholesterolemia, unspecified, I10 - Essential (primary) hypertension Referrals Speech and Hearing Referral H91.90 - Unspecified hearing loss, unspecified ear Medications: New blood pressure test kit-large ([employer] Talking Arm BP Monitor kit) As directed 1 ea 0RF I10 - Essential (primary) hypertension Discontinued Mounjaro (tirzepatide) Discontinued Reason: Doctor's Order 5 mg (0.5 mL) subcut QWEEK 6 mL 1RF NS Nurtec ODT (rimegepant) Discontinued Reason: Doctor's Order 75 mg PO Q OTHER DAY 30 tabs 1RF NS
--- OUTSIDE RECORDS SUMMARY | 2025-03-14 12:31 | XMS_ITS | Data Portability ---
Author Organization [facility], [address] Address [address] [place] [address] Care Team Providers Care Stores Naval Name Role Phone CHIQUI GRIGSBYANNA Primary Care Provider Assessment No assessment recorded. Plan of Treatment Reminders Order Date Submit Date Provider Last Modified By Organization Details Last Modified Time Details Appointments None recorded. Lab None recorded. Referral None recorded. Procedures None recorded. Surgeries None recorded. Imaging None recorded. Medication Orders amoxicillin 500 mg capsule 2022 023 [facility]/Pharmacy #[id number], [address] [place], [address], 3 12:01:08 Patient TargetsNo targets recorded. Patient InstructionsNo instructions recorded. Reason for Referral None Reported. Problems Name Problem SNOMED Code Status Onset Date Resolution Date Notes Provider Name and Address Organization Details Recorded Time Diabetes mellitus 10782011 Active 2022 Yesenia olson, PA - [facility] 3 10:05:11 Posttraumatic stress disorder 69471177 Active 2022 Yesenia olson, PA - [facility] 3 10:05:17 Depressive disorder 64039524 Active 2022 Yesenia olson, PA - [facility] 3 10:05:23 Hypercholestero lemia 83375319 Active 2022 Yesenia olson, PA - [facility] 3 10:05:30 Hypertensive disorder 01788693 Active 2022 Yes[facility] olson, [facility] - [facility] [...] Name and Address Organization Details Recorded Time 608158 metformin medicatio n Not available Not available Not available 10/28/2022 6809 RxNorm Yesenia olson PA - [facility] 3 10:02:25 Medications [...] Heart rate Respiratory rate Body temperature Systolic And Diastolic Provider Name and Address Organization Details Last Updated DateTime 3 154.94 cm 29.9 kg/m2 88396.5 9 g 99 % 99 % 64 /min 18 /min 97.8 [degF] 156/89 mm[Hg] Yesenia Ritter [facility] 10:10:47 Social History Question Answer Notes LastModified by Organizat [employer] Details LastModified Time Tobacco Smoking Status Never [...] split virus, quadrivalent, PF 1 completed Yesenia olson, PA - [facility] 10/28/2022 10:02:13 Influenza, split virus, quadrivalent, PF 2 completed Yesenia olson, PA - [facility] 10/28/2022 10:02:13 Past Encounters Encounter ID Performer Location Encounter Start Date Encounter Closed Date Diagnosis/Indication Diagnosis SNOMED-CT Code Diagnosis ICD10 Code Diagnosis Note [id number] [facility] [address] [address] [place] [address] 03/06/2018 13:36:33 03/06/2018 15:05:17 [id number] KAI ORTA MD [address] [place] [address] 10/28/2022 08:26:58 10/28/2022 12:02:44 Dental caries 59814008 K02.9 Dental Care:Gum PainTea Tree Oil Mouthwash- Desert Essence - Tea Tree Oil Mouthwash - Spearmint ( or other available brand at local store) Tooth PainClove Oil For Tooth Pain(ask your pharmacist for this) Atypical facial pain 713 96731 G50.1 Health Concerns Section Related Observation LastModified by Organization Detai ls LastModified Time None Recorded Concern Status LastModified by Organization Details LastModified Time None Recorded Advance Directives Directive None Recorded Payers Insurance Date Sequence Insurance Name Policy Number Policy Campbell Covered Member ID Campbell Member ID Guarantor Name 10/28/2022 1 [facility] ([facility] RODDY Raphael [id number] Katalina Raphael Notes Date Note Type Note Provider Name and Address Organization Details Recorded Time 10/28/2022 text/html Dental ProblemReported bypatient.Onset2 weeks ago; gradual onset; Hx of dental caries, and bruxism. Locationlower; central incisor; lateral incisor Symptomspain;sensitiv ity right sided mouth pain x2 weeks KAI ORTA [place], [address], PA - [facility] 10/28/2022 12:02:20 OBGyn Episode No OBEpisode recorded.
[2025-03-14 12:32] VITALS: BP 126/82; PULSE 83; RESP 18; TEMP 36.6; O2SAT 96; BMI 24.0
== END 2025-03-14 13:28 | disposition home or self-care (01) ==
LOC: HO.HMCC 12:28
PROVIDERS: PCP Internal Medicine; Visit Provider Internal Medicine
DX: I10 Essential (primary) hypertension (principal); E78.00 Pure hypercholesterolemia, unspecified; E11.9 Type 2 diabetes mellitus without complications; H91.90 Unspecified hearing loss, unspecified ear; Z23 Encounter for immunization

== ENCOUNTER → 2025-03-14 12:27 | Outpatient (BNVA) | payer BC, SELFPAY | PROVIDERS: PCP Internal Medicine; Visit Provider Internal Medicine | DX: I10 Essential (primary) hypertension (principal); Z23 Encounter for immunization; E78.00 Pure hypercholesterolemia, unspecified; E11.9 Type 2 diabetes mellitus without complications; H91.90 Unspecified hearing loss, unspecified ear; G43.909 Migraine, unspecified, not intractable, without status migrainosus; Z79.899 Other long term (current) drug therapy | CPT/HCPCS: 90471; 90677 ==